=== PATIENT | female | born 1980 | race Hispanic/Latino ===

== ENCOUNTER 2018-01-19 15:42 | Emergency (ER) | payer OTHER, SELFPAY ==
[2018-01-19 15:44] VITALS: BP 126/83; PULSE 80; RESP 16; TEMP 36.4; O2SAT 100
--- NOTE | 2018-01-19 16:03 | DI.US.S_ITS ---
PROCEDURE: US PERIPH VENOUS LOW EXTREM RT INDICATIONS: pain, recent flight, hx dvt TECHNIQUE: Real-time imaging, as well as color and pulse Doppler interrogation, were performed of the lower extremity deep veins from the inguinal ligament to the popliteal fossa. COMPARISON: None. FINDINGS: The deep veins are normally compressible, and free of intraluminal thrombus. Color and pulse Doppler demonstrate normal phasic intraluminal flow. There is normal augmentation response to distal compression maneuver. IMPRESSION: No visualized deep venous thrombosis. Dictated by: Emilia Zaragoza M.D. on 01/19/2018 at 18:08 Approved by: Emilia Zaragoza M.D. on 01/19/2018 at 18:08
--- NOTE | 2018-01-19 17:21 | ED.EXTPRO ---
HPI - Extremity Problem <GUSTAVO Nino - Last Filed: 01/19/18 18:12> General Chief complaint: Extremity Problem,Nontraumatic Stated complaint: THINKS SHE HAS A BLOOD CLOT AFTER A PLANE FLIGHT Time Seen by Provider: 01/19/18 15:55 Source: patient and family Mode of arrival: ambulatory Limitations: no limitations History of Present Illness HPI Narrative: Patient presents with chief complaint of Right leg pain. She is concerned about a deep vein thrombosis. She has history of DVT that she suspects led to a CVA as she has a PFO. She has been flying across the country over the past 3 days and flew back from [place] today. She had sudden onset of right leg pain. she denies any weakness or numbness or tingling. She denies any confusion, CVA symptoms, chest pain shortness of breath or abdominal pain. She denies any nausea vomiting diarrhea. She denies any numbness or tingling in her right leg. She is not taking any blood thinners. She denies any tobacco use or smoking. She stopped taking control after her previous incident. She complains of bilateral lower leg swelling as well. Related Data Home Medications Medication Instructions Recorded Confirmed cetirizine 10 mg PO QDAY #0 06/12/16 multivitamin [Multiple Vitamins] 1 tab PO QDAY #0 06/12/16 ranitidine HCl 150 mg PO BID #0 06/12/16 bupropion HCl [Wellbutrin XL] 150 mg PO QDAY #0 01/29/17 ibuprofen 800 mg PO TID #0 01/29/17 Allergies Allergy/AdvReac Type Severity Reaction Status Date / Time aspirin [ASPIRIN] Allergy Unknown ANAPHYLAXIS Unverified 07/24/17 12:42 hydrocodone [HYDROCODONE] Allergy Unknown ANAPHYLAXIS Unverified 07/24/17 12:42 Review of Systems <GUSTAVO Nino - Last Filed: 01/19/18 18:12> Review of Systems GENERAL: Denies chills, fatigue, malaise, fever, sweats. HEENT: Denies sinus pain, ear pain, sore throat, difficulty swallowing, dizziness. RESPIRATORY: Denies dyspnea, cough, wheezing, hemoptysis, sputum. CARDIOVASCULAR: Denies chest pain, palpitations, orthopnea, edema, GASTROINTESTINAL: Denies nausea, vomiting, abdominal pain, diarrhea, constipation, melena. : Denies dysuria, frequency, incontinence, hematuria, urinary retention. MUSCULOSKELETAL: See HPI SKIN: Denies rash, skin lesions, or other NEUROLOGIC: Denies weakness, headache, numbness, change in speech, confusion, seizures, incoordination. PSYCHIATRIC: No concerning psychosocial issues. 12 point review of systems is negative except for those stated above Exam <JUAN Nino-BC - Last Filed: 01/19/18 18:12> Narrative Exam Narrative: GENERAL: This is a well-nourished, well-developed patient, in no acute distress lying on stretcher HEAD: Atraumatic. Normocephalic. No temporal or scalp tenderness. EYES: Pupils equal round and reactive. Extraocular motions intact. No scleral icterus. No injection or drainage. ENT: Nose without bleeding, purulent drainage or septal hematoma. Throat without erythema, tonsillar hypertrophy or exudate. Uvula midline. Airway patent. NECK: Trachea midline. No JVD or lymphadenopathy. Supple, nontender, no meningeal signs. CARDIOVASCULAR: Regular rate and rhythm without murmurs, gallops, or rubs. RESPIRATORY: Clear to auscultation. Breath sounds equal bilaterally. No wheezes, rales, or rhonchi. no increased respiratory effort. No cough on exam. GASTROINTESTINAL: Abdomen soft, non-tender, nondistended. No hepato-splenomegaly, or palpable masses. No guarding. EXTREMITIES: +1 pedal edema noted bilaterally. Positive pedal pulses bilaterally. Patient has slight pain to palpation right upper thigh medial aspect. Full range of motion noted. BACK: Nontender without deformity or crepitance. No flank tenderness. NEURO: AOx3. SKIN: No rash erythema or ecchymosis noted right leg. Initial Vital Signs Initial Vital Signs: Vital Signs Temperature 97.6 F 01/19/18 15:44 Pulse Rate 80 01/19/18 15:44 Respiratory Rate 16 01/19/18 15:44 Blood Pressure 126/83 01/19/18 15:44 Pulse Oximetry 100 01/19/18 15:44 <Ramya Juarez DO - Last Filed: 01/20/18 07:57> Initial Vital Signs Initial Vital Signs: Vital Signs Temperature 97.6 F 01/19/18 15:44 Pulse Rate 80 01/19/18 15:44 Respiratory Rate 16 01/19/18 15:44 Blood Pressure 126/83 01/19/18 15:44 Pulse Oximetry 100 01/19/18 15:44 Course <GUSTAVO Nino - Last Filed: 01/19/18 18:12> Orders Ordered: ED Orders 01/19/18 16:03 US periph venous low extrem rt Stat Vital Signs - 8 hr 01/19/18 15:44 01/19/18 17:39 Temperature 97.6 F Pulse Rate 80 83 Respiratory Rate 16 17 Blood Pressure 126/83 129/76 Pulse Oximetry 100 99 <Ramya Juarez DO - Last Filed: 01/20/18 07:57> Orders Ordered: ED Orders 01/19/18 16:03 US periph venous low extrem rt Stat Vital Signs - 8 hr 01/19/18 15:44 01/19/18 17:39 Temperature 97.6 F Pulse Rate 80 83 Respiratory Rate 16 17 Blood Pressure 126/83 129/76 Pulse Oximetry 100 99 MDM - Extremity (Nontraumatic) <GUSTAVO Nino - Last Filed: 01/19/18 18:12> Imaging Data Venous US: Radiologist's impression: [place] [address] Ultrasound Report Signed Patient: Ledy Goss LMR#: [id number] : 1980Acct:[id number] Age/Sex: 37 / FDate of Service: 01/19/18 Loc: ED Accession Number: [id number] Procedure: US periph venous low extrem rt Ordering Provider: Nisa Whitley PROCEDURE: US PERIPH VENOUS LOW EXTREM RT INDICATIONS: pain, recent flight, hx dvt TECHNIQUE: Real-time imaging, as well as color and pulse Doppler interrogation, were performed of the lower extremity deep veins from the inguinal ligament to the popliteal fossa. COMPARISON: None. FINDINGS: The deep veins are normally compressible, and free of intraluminal thrombus. Color and pulse Doppler demonstrate normal phasic intraluminal flow. There is normal augmentation response to distal compression maneuver. IMPRESSION: No visualized deep venous thrombosis. Dictated by: Emilia Zaragoza M.D. on 01/19/2018 at 18:08 Approved by: Emilia Zaragoza M.D. on 01/19/2018 at 18:08 [facility] Narrative Medical decision making narrative: Patient presents with concern for DVT of her right leg. Given her risk factors and recent flying as well as her history, ultrasound was obtained. This came back negative for DVT. I offered to do lab work to evaluate for other causes of edema and check electrolytes organ function etc and patient declined. Patient will follow up with primary care provider. She has no questions or concerns upon discharge I discussed return precautions to the emergency department including chest pain, shortness of breath, concern for another blood clot. Discharge Plan Departure Patient Disposition: Home Clinical Impression: Acute leg pain Discharge Date/Time: 01/19/18 17:40 Interventions: ED Discharge Assessment Last Done: 01/19/18 17:39 Instructions: DI for Leg Pain Activity Restrictions/Additional Instructions: Your ultrasound came back today with no blood clot. I am glad you came in to be checked given her risk factors and history. Please follow-up with your primary care provider or come back to the emergency department if needed. He can try [id number] pain medications as needed and able as well as rest and ice. Prescriptions: No Action ranitidine HCl 150 MG tablet 150 mg PO BID Qty: 0 RF: 0 multivitamin [Multiple Vitamins] 1 EACH tablet 1 tab PO QDAY Qty: 0 RF: 0 cetirizine 10 MG tablet 10 mg PO QDAY Qty: 0 RF: 0 ibuprofen 800 MG tablet 800 mg PO TID Qty: 0 RF: 0 bupropion HCl [Wellbutrin XL] 150 MG tablet extended release 24 hr 150 mg PO QDAY Qty: 0 RF: 0 Referrals: Jose Martinez PA-C [Primary Care Provider] - <Ramya Juarez DO - Last Filed: 01/20/18 07:57> Cosign ED Attending Kevin Attestation: I was immediately available in the department for consultation. Documentation has been reviewed. I agree with assessment and plan.
--- NOTE | 2018-01-19 17:24 | ED_ITS ---
HPI - Extremity Problem <GUSTAVO Nino - Last Filed: 01/19/18 18:12> General Chief complaint: Extremity Problem,Nontraumatic Stated complaint: THINKS SHE HAS A BLOOD CLOT AFTER A PLANE FLIGHT Time Seen by Provider: 01/19/18 15:55 Source: patient and family Mode of arrival: ambulatory Limitations: no limitations History of Present Illness HPI Narrative: Patient presents with chief complaint of Right leg pain. She is concerned about a deep vein thrombosis. She has history of DVT that she suspects led to a CVA as she has a PFO. She has been flying across the country over the past 3 days and flew back from [place] today. She had sudden onset of right leg pain. she denies any weakness or numbness or tingling. She denies any confusion, CVA symptoms, chest pain shortness of breath or abdominal pain. She denies any nausea vomiting diarrhea. She denies any numbness or tingling in her right leg. She is not taking any blood thinners. She denies any tobacco use or smoking. She stopped taking control after her previous incident. She complains of bilateral lower leg swelling as well. Related Data Home Medications Medication Instructions Recorded Confirmed cetirizine 10 mg PO QDAY #0 06/12/16 multivitamin [Multiple Vitamins] 1 tab PO QDAY #0 06/12/16 ranitidine HCl 150 mg PO BID #0 06/12/16 bupropion HCl [Wellbutrin XL] 150 mg PO QDAY #0 01/29/17 ibuprofen 800 mg PO TID #0 01/29/17 Allergies Allergy/AdvReac Type Severity Reaction Status Date / Time aspirin [ASPIRIN] Allergy Unknown ANAPHYLAXIS Unverified 07/24/17 12:42 hydrocodone [HYDROCODONE] Allergy Unknown ANAPHYLAXIS Unverified 07/24/17 12:42 Review of Systems <GUSTAVO Nino - Last Filed: 01/19/18 18:12> Review of Systems GENERAL: Denies chills, fatigue, malaise, fever, sweats. HEENT: Denies sinus pain, ear pain, sore throat, difficulty swallowing, dizziness. RESPIRATORY: Denies dyspnea, cough, wheezing, hemoptysis, sputum. CARDIOVASCULAR: Denies chest pain, palpitations, orthopnea, edema, GASTROINTESTINAL: Denies nausea, vomiting, abdominal pain, diarrhea, constipation, melena. : Denies dysuria, frequency, incontinence, hematuria, urinary retention. MUSCULOSKELETAL: See HPI SKIN: Denies rash, skin lesions, or other NEUROLOGIC: Denies weakness, headache, numbness, change in speech, confusion, seizures, incoordination. PSYCHIATRIC: No concerning psychosocial issues. 12 point review of systems is negative except for those stated above Exam <JUAN Nino-BC - Last Filed: 01/19/18 18:12> Narrative Exam Narrative: GENERAL: This is a well-nourished, well-developed patient, in no acute distress lying on stretcher HEAD: Atraumatic. Normocephalic. No temporal or scalp tenderness. EYES: Pupils equal round and reactive. Extraocular motions intact. No scleral icterus. No injection or drainage. ENT: Nose without bleeding, purulent drainage or septal hematoma. Throat without erythema, tonsillar hypertrophy or exudate. Uvula midline. Airway patent. NECK: Trachea midline. No JVD or lymphadenopathy. Supple, nontender, no meningeal signs. CARDIOVASCULAR: Regular rate and rhythm without murmurs, gallops, or rubs. RESPIRATORY: Clear to auscultation. Breath sounds equal bilaterally. No wheezes , rales, or rhonchi. no increased respiratory effort. No cough on exam. GASTROINTESTINAL: Abdomen soft, non-tender, nondistended. No hepato-splenomegaly , or palpable masses. No guarding. EXTREMITIES: +1 pedal edema noted bilaterally. Positive pedal pulses bilaterally. Patient has slight pain to palpation right upper thigh medial aspect. Full range of motion noted. BACK: Nontender without deformity or crepitance. No flank tenderness. NEURO: AOx3. SKIN: No rash erythema or ecchymosis noted right leg. Initial Vital Signs Initial Vital Signs: Vital Signs Temperature 97.6 F 01/19/18 15:44 Pulse Rate 80 01/19/18 15:44 Respiratory Rate 16 01/19/18 15:44 Blood Pressure 126/83 01/19/18 15:44 Pulse Oximetry 100 01/19/18 15:44 <Ramya Juarez DO - Last Filed: 01/20/18 07:57> Initial Vital Signs Initial Vital Signs: Vital Signs Temperature 97.6 F 01/19/18 15:44 Pulse Rate 80 01/19/18 15:44 Respiratory Rate 16 01/19/18 15:44 Blood Pressure 126/83 01/19/18 15:44 Pulse Oximetry 100 01/19/18 15:44 Course <GUSTAVO Nino - Last Filed: 01/19/18 18:12> Orders Ordered: ED Orders 01/19/18 16:03 US periph venous low extrem rt Stat Vital Signs - 8 hr 01/19/18 15:44 01/19/18 17:39 Temperature 97.6 F Pulse Rate 80 83 Respiratory Rate 16 17 Blood Pressure 126/83 129/76 Pulse Oximetry 100 99 <Ramya Juarez DO - Last Filed: 01/20/18 07:57> Orders Ordered: ED Orders 01/19/18 16:03 US periph venous low extrem rt Stat Vital Signs - 8 hr 01/19/18 15:44 01/19/18 17:39 Temperature 97.6 F Pulse Rate 80 83 Respiratory Rate 16 17 Blood Pressure 126/83 129/76 Pulse Oximetry 100 99 MDM - Extremity (Nontraumatic) <GUSTAVO Nino - Last Filed: 01/19/18 18:12> Imaging Data Venous US: Radiologist's impression: [place] [address] Ultrasound Report Signed Patient: Ledy Goss LMR#: [id number] : 1980Acct:[id number] Age/Sex: 37 / FDate of Service: 01/19/18 Loc: ED Accession Number: [id number] Procedure: US periph venous low extrem rt Ordering Provider: Nisa Whitley PROCEDURE: US PERIPH VENOUS LOW EXTREM RT INDICATIONS: pain, recent flight, hx dvt TECHNIQUE: Real-time imaging, as well as color and pulse Doppler interrogation, were performed of the lower extremity deep veins from the inguinal ligament to the popliteal fossa. COMPARISON: None. FINDINGS: The deep veins are normally compressible, and free of intraluminal thrombus. Color and pulse Doppler demonstrate normal phasic intraluminal flow. There is normal augmentation response to distal compression maneuver. IMPRESSION: No visualized deep venous thrombosis. Dictated by: Emilia Zaragoza M.D. on 01/19/2018 at 18:08 Approved by: Emilia Zaragoza M.D. on 01/19/2018 at 18:08 [facility] Narrative Medical decision making narrative: Patient presents with concern for DVT of her right leg. Given her risk factors and recent flying as well as her history , ultrasound was obtained. This came back negative for DVT. I offered to do lab work to evaluate for other causes of edema and check electrolytes organ function etc and patient declined. Patient will follow up with primary care provider. She has no questions or concerns upon discharge I discussed return precautions to the emergency department including chest pain, shortness of breath, concern for another blood clot. Discharge Plan Departure Patient Disposition: Home Clinical Impression: Acute leg pain Discharge Date/Time: 01/19/18 17:40 Interventions: ED Discharge Assessment Last Done: 01/19/18 17:39 Instructions: DI for Leg Pain Activity Restrictions/Additional Instructions: Your ultrasound came back today with no blood clot. I am glad you came in to be checked given her risk factors and history. Please follow-up with your primary care provider or come back to the emergency department if needed. He can try [id number] pain medications as needed and able as well as rest and ice. Prescriptions: No Action ranitidine HCl 150 MG tablet 150 mg PO BID Qty: 0 RF: 0 multivitamin [Multiple Vitamins] 1 EACH tablet 1 tab PO QDAY Qty: 0 RF: 0 cetirizine 10 MG tablet 10 mg PO QDAY Qty: 0 RF: 0 ibuprofen 800 MG tablet 800 mg PO TID Qty: 0 RF: 0 bupropion HCl [Wellbutrin XL] 150 MG tablet extended release 24 hr 150 mg PO QDAY Qty: 0 RF: 0 Referrals: Jose Martinez PA-C [Primary Care Provider] - <Ramya Juarez DO - Last Filed: 01/20/18 07:57> Cosign ED Attending Kevin Attestation: I was immediately available in the department for consultation. Documentation has been reviewed. I agree with assessment and plan.
[2018-01-19 17:39] VITALS: BP 129/76; PULSE 83; RESP 17; O2SAT 99
--- NOTE | 2018-01-23 17:45 | PC.NURSE ---
Pt feeling fine. Pt states I love coming to you guys if I have to come to the ER.
== END 2018-01-19 17:40 | disposition home or self-care (01) ==
PROVIDERS: Emergency Provider Nurse Practitioner Family; Family Provider Physician Assistant; PCP Physician Assistant
DX: M79.604 Pain in right leg (principal)
CPT/HCPCS: 93971; 99282; 99284

== ENCOUNTER 2018-04-19 03:15 | Emergency (ER) | payer OTHER, SELFPAY ==
[2018-04-19 03:26] VITALS: BP 138/95; PULSE 75; RESP 16; TEMP 36.8; O2SAT 100; BMI 28.3
--- NOTE | 2018-04-19 03:37 | ED.FEMALEGU ---
HPI - Female Genitourinary General Chief complaint: Urogenital-Female Stated complaint: thinks she may have kidney stone Time Seen by Provider: 04/19/18 03:25 Source: patient and family Mode of arrival: ambulatory Limitations: no limitations History of Present Illness HPI Narrative: 30-year-old female, nonsmoker presents with her significant other in the chief complaint of sudden onset left flank for the past few. She denies provocation, palliation or radiation. She states she has got a history of kidney stones and this feels quite similar. She's had no fever or chills. She denies dysuria, frequency or urgency. She's had no injury, rash Onset (ago): hour(s) Female Urogenital Radiation: L Flank Quality: Aching and Burning Duration: intermittent Relieving factors: none Exacerbating factors: none Urinary symptoms: Flank Pain Patient : No Related Data Home Medications Medication Instructions Recorded Confirmed cetirizine 10 mg PO QDAY #0 06/12/16 multivitamin [Multiple Vitamins] 1 tab PO QDAY #0 06/12/16 ranitidine HCl 150 mg PO BID #0 06/12/16 bupropion HCl [Wellbutrin XL] 150 mg PO QDAY #0 01/29/17 ibuprofen 800 mg PO TID #0 01/29/17 Previous Rx's Medication Instructions Recorded ketorolac 10 mg PO Q6H PRN #14 tab 04/19/18 ondansetron 4 mg PO TID-QID PRN #10 tab 04/19/18 tamsulosin [Flomax] 0.4 mg PO DAILY #10 cap 04/19/18 Allergies Allergy/AdvReac Type Severity Reaction Status Date / Time aspirin [ASPIRIN] Allergy Unknown ANAPHYLAXIS Verified 04/19/18 03:26 hydrocodone [HYDROCODONE] Allergy Unknown ANAPHYLAXIS Verified 04/19/18 03:26 Review of Systems Review of Systems All systems reviewed & are unremarkable except as noted in HPI and below Constitutional Denies chills, Denies fever(s), Denies lethargy and Denies weakness Eyes Denies change in vision, Denies eye discharge, Denies irritation and Denies loss of vision ENT Ears, Nose, Mouth, and Throat: Denies change in voice, Denies neck pain and Denies sore throat Cardiovascular Denies chest pain, Denies irregular heart rhythm, Denies lightheadedness, Denies palpitations, Denies dyspnea, Denies dyspnea on exertion and Denies orthopnea Respiratory Denies cough, Denies dyspnea, Denies dyspnea on exertion and Denies wheezing Gastrointestinal Gastrointestinal: Denies abdominal pain, Denies change in bowel habits, Denies diarrhea, Denies nausea and Denies vomiting Genitourinary Denies hematuria, Reports flank pain, Denies urinary incontinence and Denies urinary urgency Musculoskeletal Denies neck pain Integumentary/Breasts Denies pruritus, Denies erythema, Denies rash and Denies wounds Neurologic Denies confusion, Denies loss of vision and Denies weakness Psychiatric Denies anxiety, Denies confusion, Denies depression, Denies homicidal ideation and Denies suicidal ideation Endocrine Denies palpitations Hematologic/Lymphatic Denies easy bruising Allergic/Immunologic Denies wheezing [facility] Social History Smoking Status: Never smoker Exam Initial Vital Signs Initial Vital Signs: Vital Signs Temperature 98.3 F 04/19/18 03:26 Pulse Rate 75 04/19/18 03:26 Respiratory Rate 16 04/19/18 03:26 Blood Pressure 138/95 H 04/19/18 03:26 Pulse Oximetry 100 04/19/18 03:26 Const General: cooperative and well developed Nutritional Appearance: well nourished Orientation: alert, awake, oriented x3 and not confused HENME Head: normocephalic and atraumatic Ears: external ears normal Nose: external nose normal Face and sinus: face symmetric and no sinus tenderness Mouth: moist mucous membranes Teeth and gingiva: dentition normal Throat: tonsils normal and uvula midline Eyes General: appearance normal, both eyes and all related structures Eyelids: eyelids normal Conjunctivae: conjunctivae normal Sclera: sclerae normal Pupils: PERRL EOM: EOM intact bilaterally Neck Neck: normal visual inspection, trachea midline, No lymphadenopathy, No midline deformity and No JVD Lymphatic: No lymphedema Chest Chest: normal inspection of the chest Resp Effort & Inspection: normal respiratory effort, able to speak in complete sentences, no respiratory distress and no use of accessory muscles Auscultation: clear to auscultation bilaterally, no rales, no rhonchi and no wheezes Cardio Rate: regular rate Rhythm: regular rhythm Heart Sounds: no click, no gallops, no murmurs and no rubs Pulses: normal peripheral pulses GI Inspection: non-distended Palpation: soft, no hepatosplenomegaly, No guarding, No pulsatile mass and No tender Auscultation: normal bowel sounds Back/Spine/Pelvis Back: No CVA tenderness Cervical Spine: cervical ROM normal and No pain with cervical ROM Thoracic/Lumbar Spine: thoracic and lumbar spine normal to inspection Skin General: no rashes or lesions noted, No jaundice and No petechiae Neuro General: alert, oriented x3, gait normal and no focal motor deficits Speech: speech normal Extrem General: full ROM, no clubbing, cyanosis or edema, no pedal edema and no calf tenderness Psych Appearance: well kempt Mental Status: mental status grossly normal Attitude: cooperative Thought Content: normal and suicidality Judgment: judgment good Course Orders Ordered: ED Orders 04/19/18 03:40 Urine Microscopic Stat 04/19/18 04:00 Complete Blood Count AUTO DIFF Stat Comprehensive Metabolic Panel Stat Discontinued Medications Sodium Chloride (Normal Saline 0.9%) 1,000 mls @ 1,000 mls/hr IV BOLUS ONE Stop: 04/19/18 04:42 Last Admin: 04/19/18 04:08 Dose: 1,000 mls/hr Ketorolac Tromethamine (Toradol) 15 mg IV NOW ONE Stop: 04/19/18 03:44 Last Admin: 04/19/18 04:07 Dose: 15 mg Vital Signs - 8 hr 04/19/18 03:26 Temperature 98.3 F Pulse Rate 75 Respiratory Rate 16 Blood Pressure 138/95 H Pulse Oximetry 100 MDM - Female Genitourinary Differential Diagnosis Likely urinary tract infection, ruptured ovarian cyst and cystitis Medical Records Attestation: I reviewed the patient's medical records. Lab Data Attestation: I reviewed the patient's lab results. Result diagrams: 04/19/18 04:00 04/19/18 04:00 Lab Results 04/19/18 04/19/18 04/19/18 Range/Units 03:40 04:00 04:00 WBC 11.9 H (4.5-11.0) X10^3/uL RBC 4.51 (4.0-5.2) X10^6/uL Hgb 13.6 (12.0-16.0) g/dL Hct 40.5 (36-46) % MCV 89.8 (80-100) fL MCH 30.1 (26-34) PG MCHC 33.5 (30-36) % RDW 12.9 (11.6-14.8) % Plt Count 291 (150-400) X10^3/uL Neut % (Auto) 73.8 (50-75) % Lymph % (Auto) 16.9 L (25-40) % Knott % (Auto) 6.0 (3-14) % Eos % (Auto) 2.8 (2-4) % Baso % (Auto) 0.5 (0-2) % Neut # (Auto) 8800 H (0619-5781) /uL Sodium 137 (137-145) mmol/L Potassium 4.1 (3.4-5.1) mmol/L Chloride 103 (98-107) mmol/L Carbon Dioxide 20 L (22-32) mmol/L BUN 17 (7-17) mg/dL Creatinine 1.20 H (0.52-1.04) mg/dL Estimated GFR 50.3 L (>60) mL/min BUN/Creatinine Ratio 14.2 (6-22) Glucose 115 H (70-100) mg/dL Calcium 9.5 (8.4-10.2) mg/dL Total Bilirubin 0.4 (0.2-1.3) mg/dL AST 25 (14-36) IU/L ALT 10 (9-52) IU/L Alkaline Phosphatase 86 (38-126) U/L Total Protein 7.0 (6.3-8.2) g/dL Albumin 3.7 (3.5-5.0) g/dL Globulin 3.3 (1.7-4.1) g/dL Albumin/Globulin Ratio 1.1 (1.0-2.8) Urine RBC 30-100/hpf H (0-5/HPF) Urine WBC 0-1/hpf (0-5/HPF) Ur Squamous Epith Cells 5-10 /hpf H Urine Bacteria Moderate (10-30) H (None) Ur Culture Indicated? Cult not indicated Micro UA Comment Not Reportable Urine Dip Bedside Urine Glucose Negative Bedside Urine Bilirubin - Negative Bedside Urine Ketone - Negative Urine Specific Olivia 1.030 Bedside Urine Occult Blood +++ Bedside Urine pH 6.0 Bedside Urine Protein - Negative Bedside Urine Urobilinogen - Negative Bedside Urine Nitrite - Negative Bedside Urine Leukocytes - Negative Esterase MDM Narrative Medical decision making narrative: Pyelo considered but thought less likely given lack of infectious findings in urine Kidney stone thought likely given hematuria with L flank pain and near complete resolution with toradol. Considered CT, but with shared decision making we decided to hold off on it for now. Patient given return precautions and she has verbalized her understanding Discharge Plan Departure Patient Disposition: Home Clinical Impression: Kidney stone on left side Instructions: DI for Kidney Stones Activity Restrictions/Additional Instructions: *You have been diagnosed with [ left flank pain, likely kidney stone ] *What to do: *Take medications as directed *Follow up with your primary care provider in 2-3 days, call for an appointment. Let them know you were seen in the Emergency Department and that we ask that you be seen in follow up *Return to ER if you should have any new, worsening or concerning symptoms, such as [worsening pain, fever, chills, nausea, vomiting or other bothersome symptoms ] Prescriptions: New ketorolac 10 mg tablet 10 mg PO Q6H PRN (Reason: pain) Qty: 14 RF: 0 tamsulosin [Flomax] 0.4 mg capsule 0.4 mg PO DAILY Qty: 10 RF: 0 ondansetron 4 mg tablet,disintegrating 4 mg PO TID-QID PRN (Reason: nausea and vomiting) Qty: 10 RF: 0 No Action ranitidine HCl 150 MG tablet 150 mg PO BID Qty: 0 RF: 0 multivitamin [Multiple Vitamins] 1 EACH tablet 1 tab PO QDAY Qty: 0 RF: 0 cetirizine 10 MG tablet 10 mg PO QDAY Qty: 0 RF: 0 ibuprofen 800 MG tablet 800 mg PO TID Qty: 0 RF: 0 bupropion HCl [Wellbutrin XL] 150 MG tablet extended release 24 hr 150 mg PO QDAY Qty: 0 RF: 0 Referrals: Kirstin Luna MD [Physician] - Jose Martinez PA-C [Primary Care Provider] -
[2018-04-19 04:05] LABS: RBC Urine 30-100/HPF (0-5/HPF)
[2018-04-19 04:06] LABS: Bacteria Urine Moderate (10-30); Culture Indicated Urine Cult Not Indicated; Squamous Epithelial Cell Urine 5-10 /HPF; WBC Urine 0-1/HPF (0-5/HPF)
[2018-04-19] MEDS: KETOROLAC 30 MG/ML VIAL 15 MG IV (04:07)
[2018-04-19] MEDS: SODIUM CHLORIDE 0.9% 1,000 ML 1000 ML IV (04:08)
[2018-04-19 04:14] LABS: Add Manual Diff / Slide Review NO; Basophils Percent Auto 0.5 % (0-2); Eosinophils Percent Auto 2.8 % (2-4); Hematocrit 40.5 % (36-46); Hemoglobin 13.6 g/dL (12.0-16.0); Lymphocytes Percent Auto 16.9 % (25-40); Mean Corpuscular HGB Conc 33.5 % (30-36); Mean Corpuscular Hemoglobin 30.1 PG (26-34); Mean Corpuscular Volume 89.8 fL (80-100); Neutrophils Absolute Auto 8800 /uL (1500-7000); Neutrophils Percent Auto 73.8 % (50-75); Platelet Count 291 X10^3/uL (150-400); Red Blood Cell Count 4.51 X10^6/uL (4.0-5.2); Red Cell Distribution Width 12.9 % (11.6-14.8); White Blood Cell Count 11.9 X10^3/uL (4.5-11.0)
[2018-04-19 04:18] LABS: Alanine Aminotransferase 10 IU/L (9-52); Albumin 3.7 g/dL (3.5-5.0); Albumin Globulin Ratio 1.1 (1.0-2.8); Alkaline Phosphatase 86 U/L (38-126); Aspartate Aminotransferase 25 IU/L (14-36); BUN Creatinine Ratio 14.2 (6-22); Bilirubin Total 0.4 mg/dL (0.2-1.3); Blood Urea Nitrogen 17 mg/dL (7-17); Calcium 9.5 mg/dL (8.4-10.2); Carbon Dioxide 20 mmol/L (22-32); Chloride 103 mmol/L (98-107); Estimated Glomerular Filt Rate 50.3 mL/min (>60); Globulin 3.3 g/dL (1.7-4.1); Glucose 115 mg/dL (70-100); HEMOLYSIS < 15 (0-50); Potassium 4.1 mmol/L (3.4-5.1); Sodium 137 mmol/L (137-145)
[2018-04-19 05:06] VITALS: BP 126/81; PULSE 72; RESP 15; O2SAT 99
== END 2018-04-19 05:06 | disposition home or self-care (01) ==
PROVIDERS: Emergency Provider Emergency Medicine; Family Provider Physician Assistant; PCP Physician Assistant
DX: N20.0 Calculus of kidney (principal)
CPT/HCPCS: 36591; 80053; 81003; 81015; 85025; 96361; 96374; 99283; 99284; J1885

== ENCOUNTER 2019-03-08 09:37 | Emergency (ER) | payer OTHER, SELFPAY ==
[2019-03-08 09:57] VITALS: BP 154/72; PULSE 70; RESP 16; TEMP 36.8; O2SAT 98; BMI 36.6
[2019-03-08 10:04] LABS: Appearance Urine UA SL CLOUDY; Bilirubin Urine UA NEGATIVE (NEGATIVE); Color Urine UA YELLOW; Glucose Urine UA NEGATIVE (Negative); Ketones Urine UA NEGATIVE (NEGATIVE); Leukocyte Esterase Urine UA NEGATIVE (NEGATIVE); Nitrite Urine UA NEGATIVE (Negative); Occult Blood Urine UA 3+ (Negative); Protein Urine UA NEGATIVE (Negative); Urobilinogen Urine UA 0.2 E.U./dL (0.2)
[2019-03-08 10:05] LABS: pH Urine UA 5.5 (4.5-8.0)
--- NOTE | 2019-03-08 10:15 | DI.CT.S_ITS ---
PROCEDURE: CT KIDNEY URETER BLADDER (KUB) INDICATIONS: R flank pain TECHNIQUE: Noncontrast 5 mm thick sections acquired from the diaphragms to the symphysis. 5 mm thick coronal and sagittal reformats were then performed. For radiation dose reduction, the following was used: automated exposure control, adjustment of mA and/or kV according to patient size. COMPARISON: None. FINDINGS: Image quality: Excellent. Lung bases: Lung bases are clear. Heart size is normal. Urinary system: Both kidneys are normal in size. No kidney stones. No hydronephrosis or perinephric fat stranding. Both ureters appear non-dilated throughout their expected courses. Bladder wall thickness is normal; punctate calcification is noted immediately distal to the right ureteral calculus. Other solid organs: Liver is enlarged with steatosis. Gallbladder is unremarkable. Pancreas is normal in contours. Spleen is normal in size. No adrenal nodules. Peritoneum and bowel: Unenhanced bowel loops demonstrate normal wall thickness and caliber. No free fluid or air. Nodes and vessels: No retroperitoneal or mesenteric adenopathy by size criteria. Aorta and inferior vena cava are normal in caliber. Abdominal wall: No ventral hernias. Pelvis: No free pelvic fluid. No inguinal hernias or adenopathy. Bones: No suspicious bony lesions. No vertebral body compression fractures. IMPRESSION: 1. Punctate calculus immediately distal to the ureterovesicular junction as above. Dictated by: Emilia Zaragoza M.D. on 03/08/2019 at 11:28 Approved by: Emilia Zaragoza M.D. on 03/08/2019 at 11:31
[2019-03-08 10:17] LABS: RBC Urine 30-100/HPF (0-5/HPF); WBC Urine 0-1/HPF (0-5/HPF)
[2019-03-08 10:18] LABS: Amorphous Sediment Urine 1+; Bacteria Urine Many (>30); Squamous Epithelial Cell Urine >30 /HPF (0-5/HPF)
--- NOTE | 2019-03-08 10:19 | ED_ITS ---
HPI - Female Genitourinary General Chief complaint: Urogenital-Female Stated complaint: kidney stone Time Seen by Provider: 03/08/19 09:44 Source: patient Mode of arrival: Ambulatory History of Present Illness HPI Narrative: Patient comes emergency department complaining of urinary frequency for the last week and right flank pain for last couple of days. She states she has not had any fevers or dysuria. No gross blood in her urine. Iggy estrada states the symptoms feel similar to when she has had a kidney stone the past. Patient denies any anterior abdominal pain. No bowel changes. Patient has been nauseated and vomiting. No other complaints at this time period Related Data Home Medications Medication Instructions Recorded Confirmed cetirizine 10 mg PO QDAY #0 06/12/16 multivitamin [Multiple Vitamins] 1 tab PO QDAY #0 06/12/16 ranitidine HCl 150 mg PO BID #0 06/12/16 bupropion HCl [Wellbutrin XL] 150 mg PO QDAY #0 01/29/17 ibuprofen 800 mg PO TID #0 01/29/17 Previous Rx's Medication Instructions Recorded ketorolac 10 mg PO Q6H PRN #14 tab 04/19/18 ondansetron 4 mg PO TID-QID PRN #10 tab 04/19/18 tamsulosin [Flomax] 0.4 mg PO DAILY #10 cap 04/19/18 ondansetron 4 mg PO Q6H PRN #7 tab 03/08/19 tramadol [Ultram] 50 mg PO Q4H PRN #7 tab 03/08/19 Allergies Allergy/AdvReac Type Severity Reaction Status Date / Time aspirin [ASPIRIN] Allergy Unknown ANAPHYLAXIS Verified 03/08/19 09:57 hydrocodone [HYDROCODONE] Allergy Unknown ANAPHYLAXIS Verified 03/08/19 09:57 Review of Systems Constitutional Constitutional: Denies chills, Denies fatigue, Denies fever(s), Denies frequent falls, Denies lethargy and Denies weakness Eyes Eyes: Denies change in vision, Denies eye discharge, Denies irritation and Denies loss of vision ENT Ears, Nose, Mouth, and Throat: Denies change in voice, Denies dizziness, Denies neck pain, Denies sore throat and Denies throat swelling Cardiovascular Cardiovascular: Denies chest pain, Denies irregular heart rhythm, Denies lightheadedness, Denies palpitations, Denies dyspnea, Denies dyspnea on exertion and Denies orthopnea Respiratory Respiratory: Denies cough, Denies dyspnea, Denies dyspnea on exertion and Denies wheezing Gastrointestinal Gastrointestinal: Denies abdominal pain, Denies change in bowel habits, Denies diarrhea, Reports nausea and Reports vomiting Genitourinary Genitourinary: Denies hematuria, Reports flank pain, Denies urinary incontinence and Denies urinary urgency Comments: Urinary frequency Musculoskeletal Musculoskeletal: Denies back pain, Denies muscle weakness, Denies neck pain, Denies numbness and Denies tingling Integumentary/Breasts Skin/Breast: Denies pruritus, Denies erythema, Denies rash and Denies wounds Neurologic Neurologic: Denies behavioral changes, Denies confusion, Denies dizziness, Denies frequent falls, Denies loss of vision, Denies numbness, Denies tingling and Denies weakness Psychiatric Psychiatric: Denies anxiety, Denies behavioral changes, Denies confusion, Denies depression, Denies homicidal ideation and Denies suicidal ideation Endocrine Endocrine: Denies fatigue, Denies flushing and Denies palpitations Hematologic/Lymphatic Hematologic/Lymphatic: Denies easy bruising Allergic/Immunologic Allergic/Immunologic: Denies urticaria, Denies throat swelling and Denies wheezing Patient History marital status: Smoking Status: Never smoker Exam Initial Vital Signs Initial Vital Signs: Vital Signs Temperature 98.3 F 03/08/19 09:57 Pulse Rate 70 03/08/19 09:57 Respiratory Rate 16 03/08/19 09:57 Blood Pressure 154/72 H 03/08/19 09:57 Pulse Oximetry 98 03/08/19 09:57 Const General: cooperative and well developed Nutritional Appearance: well nourished Orientation: alert, awake, oriented x3 and not confused [facility] Head: normocephalic and atraumatic Ears: external ears normal Nose: external nose normal and No nasal discharge Face and sinus: face symmetric and No dry mucous membranes Mouth: oral mucosae normal and moist mucous membranes Teeth and gingiva: dentition normal Throat: tonsils normal and uvula midline Eyes General: appearance normal, both eyes and all related structures Eyelids: eyelids normal Conjunctivae: conjunctivae normal Sclera: sclerae normal Pupils: PERRL EOM: EOM intact bilaterally Neck Neck: normal visual inspection, trachea midline, No lymphadenopathy, No midline deformity and No JVD Lymphatic: No lymphedema Chest Chest: normal inspection of the chest Resp Effort & Inspection: normal respiratory effort, able to speak in complete sentences, no respiratory distress and no use of accessory muscles Auscultation: clear to auscultation bilaterally, no rales, no rhonchi and no wheezes Cardio Rate: regular rate Rhythm: regular rhythm Heart Sounds: no click, no gallops, no murmurs and no rubs Pulses: normal peripheral pulses GI Inspection: non-distended Palpation: soft, no hepatosplenomegaly, No guarding, No pulsatile mass and tender (Mild, right flank) Auscultation: normal bowel sounds General: CVA tenderness (Right) Back/Spine/Pelvis Back: No CVA tenderness Cervical Spine: cervical ROM normal and No pain with cervical ROM Thoracic/Lumbar Spine: thoracic and lumbar spine normal to inspection Skin General: no rashes or lesions noted, No jaundice and No petechiae Neuro General: alert, oriented x3, gait normal and no focal motor deficits Speech: speech normal Extrem General: full ROM, no clubbing, cyanosis or edema, no pedal edema and no calf tenderness Psych Appearance: well kempt Mental Status: mental status grossly normal Attitude: cooperative Thought Content: normal and suicidality Judgment: judgment good Course Course Course Narrative: Patient was worked up for urinalysis and ultimately, CT KUB. She was treated symptomatically with IV fluids, Zofran, Toradol, and Dilaudid. She was found to have a small stone at the UVJ on the right. I re-evaluated the patient was feeling much better, and I discussed with her and her the findings CT. We have discussed home management of symptoms, as well as the usual indications for return. I have given her prescriptions for Vicodin and Zofran, though I do believe the stone will pass quite soon, based on the CT findings. Orders Ordered: Discontinued Medications Hydromorphone HCl (Dilaudid) 0.5 mg IV NOW ONE Stop: 03/08/19 10:18 Last Admin: 03/08/19 10:38 Dose: 0.5 mg Documented by: GREGG Sodium Chloride (Normal Saline 0.9%) 1,000 mls @ 1,000 mls/hr IV BOLUS ONE Stop: 03/08/19 11:12 Last Infusion: 03/08/19 12:43 Dose: 0 mls/hr Documented by: Admin: 03/08/19 10:39 Dose: 1,000 mls/hr Documented by: GREGG Ketorolac Tromethamine (Toradol) 30 mg IV NOW ONE Stop: 03/08/19 10:14 Last Admin: 03/08/19 10:37 Dose: 30 mg Documented by: GREGG Ondansetron HCl (Zofran) 4 mg IV NOW ONE Stop: 03/08/19 10:14 Last Admin: 03/08/19 10:35 Dose: 4 mg Documented by: GREGG Vital Signs Vital signs: Vital Signs - 8 hr 03/08/19 09:57 Temperature 98.3 F Pulse Rate 70 Respiratory Rate 16 Blood Pressure 154/72 H Pulse Oximetry 98 MDM - Female Genitourinary Medical Records Attestation: I reviewed the patient's medical records. Lab Data Attestation: I reviewed the patient's lab results. Labs: Lab Results 03/08/19 Range/Units 10:01 Urine Color Yellow Urine Appearance Sl cloudy Urine pH 5.5 (4.5-8.0) Ur Specific [place] 1.020 (1.000-1.035) Urine Protein Negative (Negative) Urine Glucose (UA) Negative (Negative) g/dL Urine Ketones Negative (NEGATIVE) Urine Occult Blood 3+ H (Negative) Urine Nitrate Negative (Negative) Urine Bilirubin Negative (NEGATIVE) Urine Urobilinogen 0.2 (0.2) E.U./dL Ur Leukocyte Esterase Negative (NEGATIVE) Urine RBC 30-100/hpf H (0-5/HPF) Urine WBC 0-1/hpf (0-5/HPF) Ur Squamous Epith Cells >30 /hpf H (0-5/HPF) Other Crystals Ammonium biurate Amorphous Sediment 1+ Urine Bacteria Many (>30) H (None) Ur Culture Indicated? Culture not indicate Micro UA Comment Imaging Data CT scan - abdomen: Radiologist's impression: PROCEDURE: CT KIDNEY URETER BLADDER (KUB) INDICATIONS: R flank pain TECHNIQUE: Noncontrast 5 mm thick sections acquired from the diaphragms to the symphysis. 5 mm thick coronal and sagittal reformats were then performed. For radiation dose reduction, the following was used: automated exposure control, adjustment of mA and/or kV according to patient size. COMPARISON: None. FINDINGS: Image quality: Excellent. Lung bases: Lung bases are clear. Heart size is normal. Urinary system: Both kidneys are normal in size. No kidney stones. No hydronephrosis or perinephric fat stranding. Both ureters appear non-dilated throughout their expected courses. Bladder wall thickness is normal; punctate calcification is noted immediately distal to the right ureteral calculus. Other solid organs: Liver is enlarged with steatosis. Gallbladder is unremarkab le. Pancreas is normal in contours. Spleen is normal in size. No adrenal nodules. Peritoneum and bowel: Unenhanced bowel loops demonstrate normal wall thickness and caliber. No free fluid or air. Nodes and vessels: No retroperitoneal or mesenteric adenopathy by size criteria. Aorta and inferior vena cava are normal in caliber. Abdominal wall: No ventral hernias. Pelvis: No free pelvic fluid. No inguinal hernias or adenopathy. Bones: No suspicious bony lesions. No vertebral body compression fractures. IMPRESSION: 1. Punctate calculus immediately distal to the ureterovesicular junction as above. Dictated by: Emilia Zaragoza M.D. on 03/08/2019 at 11:28 Approved by: Emilia Zaragoza M.D. on 03/08/2019 at 11:31 Discharge Plan Departure Patient Disposition: Home Clinical Impression: Kidney stone Discharge Date/Time: 03/08/19 12:46 Instructions: DI for Kidney Stones Activity Restrictions/Additional Instructions: Your urinalysis showed blood, but no infection. Your CT scan showed a small kidney stone that is about to pop out of your ureter into your bladder. This is most likely why you have the recent escalation in pain, as this is the most difficult place for a stone to pass. Once stone passes past the wall of the bladder, it will be easily passed through. Prescriptions: New ondansetron 4 mg tablet,disintegrating 4 mg PO Q6H PRN (Reason: nausea and vomiting) Qty: 7 RF: 0 tramadol [Ultram] 50 mg tablet 50 mg PO Q4H PRN (Reason: pain) Qty: 7 RF: 0 No Action ranitidine HCl 150 MG tablet 150 mg PO BID Qty: 0 RF: 0 multivitamin [Multiple Vitamins] 1 EACH tablet 1 tab PO QDAY Qty: 0 RF: 0 cetirizine 10 MG tablet 10 mg PO QDAY Qty: 0 RF: 0 ibuprofen 800 MG tablet 800 mg PO TID Qty: 0 RF: 0 bupropion HCl [Wellbutrin XL] 150 MG tablet extended release 24 hr 150 mg PO QDAY Qty: 0 RF: 0 ketorolac 10 mg tablet 10 mg PO Q6H PRN (Reason: pain) Qty: 14 RF: 0 tamsulosin [Flomax] 0.4 mg capsule 0.4 mg PO DAILY Qty: 10 RF: 0 ondansetron 4 mg tablet,disintegrating 4 mg PO TID-QID PRN (Reason: nausea and vomiting) Qty: 10 RF: 0 Referrals: Jose Martinez PA-C [Primary Care Provider] -
[2019-03-08] MEDS: ONDANSETRON 4 MG/2 ML INJ IV (10:35)
[2019-03-08] MEDS: KETOROLAC 60 MG/2 ML VIAL 30 MG IV (10:37)
[2019-03-08] MEDS: HYDROMORPHONE 0.5 MG INJ IV (10:38)
[2019-03-08] MEDS: SODIUM CHLORIDE 0.9% 1,000 ML 1000 ML IV (10:39)
[2019-03-08 11:00] VITALS: BP 119/65; PULSE 81; RESP 18; O2SAT 97
[2019-03-08 12:00] VITALS: BP 112/64; PULSE 77; O2SAT 97
[2019-03-08 12:30] VITALS: BP 115/63; PULSE 75; O2SAT 98
== END 2019-03-08 12:46 | disposition home or self-care (01) ==
PROVIDERS: Emergency Provider Emergency Medicine; PCP Physician Assistant
DX: N20.0 Calculus of kidney (principal); Z87.442 Personal history of urinary calculi; R11.2 Nausea with vomiting, unspecified
CPT/HCPCS: 36415; 74176; 81001; 96361; 96374; 96375; 99283; 99284; J1170; J1885; J2405

== ENCOUNTER 2020-11-16 23:13 | Emergency (ER) | payer OTHER, SELFPAY ==
[2020-11-16 23:21] VITALS: BP 122/76; PULSE 85; RESP 18; TEMP 36.6; O2SAT 98
--- NOTE | 2020-11-16 23:24 | DI.RAD.S_ITS ---
PROCEDURE: XR HIP W PEL IF DONE LT 2V INDICATIONS: no injury,pain TECHNIQUE: AP pelvis with lateral view(s) of the left hip(s). COMPARISON: None. FINDINGS: Bones: No fractures or dislocations. Pelvic ring appears intact. No suspicious bony lesions. Soft tissues: The visualized bowel gas pattern is normal. Small calcification noted in the medial soft tissues adjacent to the superior margin of the left lesser trochanter. IMPRESSION: No osseous lesion. If symptoms and/or clinical suspicion for pathology persists, further assessment with repeat radiographs (7-10 days) or advanced imaging (e.g. CT, MRI or bone scan) should be considered. Dictated by: Deana Dickinson MD, PhD on 11/17/2020 at 8:58 Approved by: Deana Dickinson MD, PhD on 11/17/2020 at 8:59
--- NOTE | 2020-11-17 00:03 | ED.EXTPRO ---
HPI - Extremity Problem General Chief complaint: Extremity Problem,Nontraumatic Stated complaint: left hip pain Time Seen by Provider: 11/16/20 23:56 Source: patient Mode of arrival: Wheelchair Limitations: no limitations History of Present Illness HPI Narrative: Patient is a 40-year-old female here for evaluation of left hip discomfort. She states that earlier this evening she was riding in a car. She started having discomfort in the hip and by the time that they stopped and when she tried to get out she had such excruciating pain that she could not stand. Has tried some heat and ice and also anti-inflammatories without any improvement. She did not fall. She has no back pain. No tingling down into her leg. Describes the discomfort as the front of her leg. Related Data Home Medications Medication Instructions Recorded Confirmed cetirizine 10 mg tablet 10 mg PO QDAY #0 06/12/16 multivitamin (Multiple Vitamins) 1 tab PO QDAY #0 06/12/16 ranitidine HCl 150 mg tablet 150 mg PO BID #0 06/12/16 bupropion HCl 150 mg 24 hr tablet, 150 mg PO QDAY #0 01/29/17 extended release (Wellbutrin XL) ibuprofen 800 mg tablet 800 mg PO TID #0 01/29/17 Previous Rx's Medication Instructions Recorded ketorolac 10 mg tablet 10 mg PO Q6H PRN #14 tab 04/19/18 ondansetron 4 mg disintegrating 4 mg PO TID-QID PRN #10 tab 04/19/18 tablet tamsulosin 0.4 mg capsule (Flomax) 0.4 mg PO DAILY #10 cap 04/19/18 ondansetron 4 mg disintegrating 4 mg PO Q6H PRN #7 tab 03/08/19 tablet tramadol 50 mg tablet (Ultram) 50 mg PO Q4H PRN #7 tab 03/08/19 Allergies Allergy/AdvReac Type Severity Reaction Status Date / Time aspirin [ASPIRIN] Allergy Unknown ANAPHYLAXIS Verified 03/08/19 09:57 hydrocodone [HYDROCODONE] Allergy Unknown ANAPHYLAXIS Verified 03/08/19 09:57 Review of Systems Constitutional Constitutional: Reports system reviewed and no additional complaints, except as documented Gastrointestinal Gastrointestinal: Reports system reviewed and no additional complaints, except as documented Genitourinary Genitourinary: Reports system reviewed and no additional complaints, except as documented Musculoskeletal Musculoskeletal: Reports as per HPI Integumentary/Breasts Skin/Breast: Reports system reviewed and no additional complaints, except as documented Hematologic/Lymphatic On Anticoagulants: No Patient History Medical History Atypical chest pain Social History marital status: Smoking Status: Never smoker Smoking Status: Never smoker Substance Use Type: does not use Exam Initial Vital Signs Initial Vital Signs: Vital Signs Temperature 98 F 11/16/20 23:21 Pulse Rate 85 11/16/20 23:21 Respiratory Rate 18 11/16/20 23:21 Blood Pressure 122/76 11/16/20 23:21 Pulse Oximetry 98 11/16/20 23:21 Const General: cooperative, healthy appearing and comfortable HENMT Head: normal to inspection and normocephalic Resp Effort & Inspection: normal respiratory effort Cardio Rate: regular rate GI Inspection: normal to inspection Palpation: soft Back/Spine/Pelvis Thoracic/Lumbar Spine: No paraspinal tenderness and No lumbar spinal tenderness Skin General: no rashes or lesions noted Neuro General: patient alert, patient awake, patient oriented x3 and moves all extremities Extrem General: normal to inspection and capillary refill normal Other: Her left knee and left ankle are unremarkable. Has tenderness to palpation over the anterior portion of the left hip. I can reproduce the tenderness by flexion of the hip. Has no tenderness over the greater trochanter the lateral aspect of the hip. Psych Appearance: grossly normal and well kempt Course Orders Ordered: ED Orders 11/16/20 23:24 XR hip w pel if done LT 2V Stat Discontinued Medications Cyclobenzaprine HCl (Cyclobenzaprine 10 Mg Tablet) 10 mg PO NOW ONE Stop: 11/17/20 00:04 Last Admin: 11/17/20 00:19 Dose: 10 mg Documented by: Cyclobenzaprine HCl (Cyclobenzaprine 10 Mg Prepack) 1 bottle MISC SEEINSTR ONE Stop: 11/17/20 00:04 Last Admin: 11/17/20 00:19 Dose: 1 bottle Documented by: Vital Signs Vital signs: Vital Signs - 8 hr 11/16/20 23:21 Temperature 98 F Pulse Rate 85 Respiratory Rate 18 Blood Pressure 122/76 Pulse Oximetry 98 MDM - Extremity (Nontraumatic) Imaging Data Extremity x-ray #1: Attestation: I personally reviewed and interpreted this imaging study as follows: My Impression: No fractures, no dislocations MDM Narrative Medical decision making narrative: Patient is symptoms are consistent with a strain of her hip flexors on the left. There were no fractures dislocations noted on the x-ray. She is otherwise neurovascularly intact. We did discuss conservative measures that she can do at home to include he denies and also stretching. Will send her home with muscle relaxers. She was given return precautions and follow-up instructions. She expressed understanding and agreement. Discharge Plan Departure Patient Disposition: Home Clinical Impression: Muscle strain of left hip Instructions: DI for Muscle Strain Activity Restrictions/Additional Instructions: Your physical exam today is consistent with hip flexor strain of your left hip. The muscle relaxers that you were given this evening should help with the symptoms. I also recommend that you do some stretching like we discussed. Return to the emergency department for any new or worsening symptoms Prescriptions: No Action ranitidine HCl 150 MG tablet 150 mg PO BID Qty: 0 RF: 0 multivitamin [Multiple Vitamins] 1 EACH tablet 1 tab PO QDAY Qty: 0 RF: 0 cetirizine 10 MG tablet 10 mg PO QDAY Qty: 0 RF: 0 ibuprofen 800 MG tablet 800 mg PO TID Qty: 0 RF: 0 bupropion HCl [Wellbutrin XL] 150 MG tablet extended release 24 hr 150 mg PO QDAY Qty: 0 RF: 0 ketorolac 10 mg tablet 10 mg PO Q6H PRN (Reason: pain) Qty: 14 RF: 0 tamsulosin [Flomax] 0.4 mg capsule 0.4 mg PO DAILY Qty: 10 RF: 0 ondansetron 4 mg tablet,disintegrating 4 mg PO TID-QID PRN (Reason: nausea and vomiting) Qty: 10 RF: 0 ondansetron 4 mg tablet,disintegrating 4 mg PO Q6H PRN (Reason: nausea and vomiting) Qty: 7 RF: 0 tramadol [Ultram] 50 mg tablet 50 mg PO Q4H PRN (Reason: pain) Qty: 7 RF: 0
[2020-11-17] MEDS: CYCLOBENZAPRINE 10 MG PREPACK 1 BOTTLE MISC (00:19)
[2020-11-17] MEDS: CYCLOBENZAPRINE 10 MG TABLET PO (00:19)
== END 2020-11-17 | disposition home or self-care (01) ==
PROVIDERS: Emergency Provider Emergency Medicine
DX: S76.012A Strain of muscle, fascia and tendon of left hip, initial encounter (principal)
CPT/HCPCS: 73502; 99283

== ENCOUNTER → 2021-11-15 12:31 | Outpatient (CLI) | payer OTHER, SELFPAY ==
--- NOTE | 2021-11-15 12:33 | DI.ECHO.S_ITS ---
[facility]---------+ [facility] +---------+ : : [address] : : : : [id number] : : : : Phone: [phone] Echocardiogram Report + + :Name: EDUIN CASILLAS Study Date: 11/15/2021 Height: 62 in : :[facility] ReadingLocation: Weight: 208 lb : : Gender: Female BSA: 1.9 m2 : :: 1980 Age: 41 yrs BP: 121/81 mmHg: :Reason For Study: DYSPNEA, ATRIAL SEPTAL DEFECT, CHEST PAIN : :Ordering Physician: BEATRICE, : :DEO Performed By: Tiffanie Fall : :Referring: DEO HELMS : + + Interpretation Summary 1) Normal left ventricular thickness, size, wall motion, and systolic function (EF 60-65%). 2) Normal right ventricular size and function. 3) No significant valvular abnormalities. 4) Bubble study showed bubbles in the left ventricle, suggesting intracardiac shunt but source of shunt couldn't be identified on this study. 5) No prior Echo available for comparison. Procedure: A two-dimensional transthoracic echocardiogram with color flow and Doppler was performed. The study quality was technically difficult. There is no prior echocardiogram noted for this patient. The patient was in sinus rhythm with heart rates between 70-90 bpm during the exam. Left Ventricle: The left ventricle is normal in size and wall thickness. The ejection fraction is estimated to be 60-65%. Left ventricular systolic function appears normal without focal wall motion abnormalities. Right Ventricle: The right ventricle is normal in size and function. Atria: The left atrial size is normal. Right atrial size is normal. Bubble study showed bubbles in the left ventricle, suggesting intracardiac shunt but source of shunt couldn't be identified on this study. Mitral Valve: The mitral valve is normal in structure and function. There is trace mitral regurgitation. Aortic Valve: The aortic valve is trileaflet. The aortic valve opens well. There is no aortic valve stenosis. No aortic regurgitation is present. Tricuspid Valve: The tricuspid valve is normal in structure and function. There is mild tricuspid regurgitation. Pulmonic Valve: The pulmonic valve leaflets are thin and pliable; valve motion is normal. There is no pulmonic valvular regurgitation. Great Vessels: The aortic root is normal size. The dimensions of the ascending aorta are normal. The inferior vena cava was not well visualized. Pericardium/ Pleura There is no pericardial effusion. There is no pleural effusion. MMode/2D Measurements & Calculations LVIDd: 4.3 cm LVOT diam: 2.2 cm LVIDs: 2.8 cm Ao root diam: 2.9 cm FS: 35.6 % asc Aorta Diam: 2.7 cm EPSS: 0.51 cm Ao Arch Diam (Prox Trans): 2.5 cm IVSd: 0.69 cm LVPWd: 0.65 cm LV elise. diameter/BSA (cm/m^2): 2.2 LV sys. diameter/BSA (cm/m^2): 1.4 LA A2 area: 15.1 cm2 RA long axis: 5.0 cm LA A4 area: 14.3 cm2 RA area: 13.9 cm2 LA length (vol): 5.1 cm RA vol: 33.0 ml LA vol: 36.1 ml RA : 17.0 ml/m2 LA vol index: 18.6 ml/m2 RVD1 (basal): 3.6 cm RVD2 (mid): 2.8 cm TAPSE: 1.6 cm Doppler Measurements & Calculations Ao V2 max: 106.9 cm/sec LVOT Max Javde: 75.8 cm/sec Ao V2 mean: 65.5 cm/sec LV V1 max P.3 mmHg Ao max P.6 mmHg LV V1 VTI: 14.5 cm Ao mean P.1 mmHg ANTONIETTA(I,D): 2.6 cm2 Ao V2 VTI: 20.9 cm ANTONIETTA(V,D): 2.6 cm2 sev ratio: 0.69 ANTONIETTA indexed to BSA (cm^2/m^2): 1.3 MV E max javed: 55.1 cm/sec TR max javed: 203.8 cm/sec MV A max javed: 47.7 cm/sec TR max P.6 mmHg MV E/A: 1.2 PA V2 max: 87.8 cm/sec Med Peak E' Javed: 7.3 cm/sec PA V2 mean: 52.0 cm/sec E/E' med: 7.6 PA mean P.4 mmHg Lat Peak E' Javed: 11.2 cm/sec PA pr(Accel): 29.3 mmHg E/E' lat: 4.9 E/e' average: 6.3 MV dec time: 0.24 sec SV(LVOT): 54.4 ml Reading Physician:04:35 PM
[2021-11-15 13:50] LABS: COVID19 -Nasal RAPID Negative (Negative)
--- NOTE | 2021-11-15 18:57 | DI.NM.S_ITS ---
DATE OF SERVICE: 11/15/2021 PROCEDURE PERFORMED: Exercise treadmill stress testing without imaging. ORDERING PROVIDER: Dr. Sourav Helms. INDICATIONS: The patient is a 41-year-old obese female with obstructive sleep apnea, DVT, and PFO with a history of CVA who reports exertional left chest pain and dyspnea. FINDINGS: 1. The patient was able to exercise for 7 minutes, 6 seconds on a standard Jose Rafael protocol suggesting moderately impaired exercise capacity with an CHANTELL of +18%, achieving 10.1 METs. 2. She had a normal heart rate and blood pressure response to exercise, achieving a maximum heart rate of 173 BPM (97% of her predicted maximum). 3. She had no chest pain or other anginal symptoms but had moderate exertional dyspnea. 4. Her resting ECG shows sinus rhythm with normal ST segments. There are no significant ST-segment shifts or arrhythmias with stress. IMPRESSION: 1. Normal exercise treadmill study for ischemia. 2. Moderately impaired exercise capacity without angina or arrhythmias. Wolfgang Ledy - EUGENE/ata/wayne doc#: [id number]/job#: [id number] dd: 11/15/2021 16:53:00 dt: 11/15/2021 18:39:00 DICTATING MD/COPIES TO: Niranjan Frederick MD COPIES MNE: THIAGO;
== END ==
PROVIDERS: PCP Physician Assistant; Referring Provider Internal Medicine Cardiovascular Disease; Visit Provider Internal Medicine Cardiovascular Disease
DX: Q21.1 Atrial septal defect (principal); I07.1 Rheumatic tricuspid insufficiency; R06.00 Dyspnea, unspecified; R07.9 Chest pain, unspecified; E66.9 Obesity, unspecified; G47.33 Obstructive sleep apnea (adult) (pediatric); Z20.822 Contact with and (suspected) exposure to COVID-19; Z86.73 Personal history of transient ischemic attack (TIA), and cerebral infarction without residual deficits
CPT/HCPCS: 87635; 93017; 93306

== ENCOUNTER 2022-10-20 21:16 | Emergency (ER) | payer OTHER, SELFPAY ==
[2022-10-20 21:32] VITALS: BP 130/71; PULSE 91; RESP 18; O2SAT 96
--- NOTE | 2022-10-20 21:37 | PC.NURSE ---
see triage note, denies any urinary symptoms, noticed urine was pink tinged
--- NOTE | 2022-10-20 22:02 | DI.RAD.S_ITS ---
PROCEDURE: XR ABDOMEN 1V INDICATIONS: abd pain and constipation possible renal stone TECHNIQUE: One view of the abdomen acquired. COMPARISON: CT, CT KIDNEY URETER BLADDER ([facility]), 03/08/2019, 11:09. FINDINGS: Surgical changes and devices: None. Bowel: Bowel gas pattern is normal. No visualized constipation or obstruction. Soft tissues: No suspicious abdominal calcifications. Possible calcification versus bowel contents overlying the right renal shadow. Visualized solid organ contours appear normal in size. Bones: No suspicious bony lesions. IMPRESSION: No constipation or obstruction. Possible calcification versus bowel contents are present overlying the right renal shadow. Dictated by: Emilia Zaragoza M.D. on 10/20/2022 at 22:40 Approved by: Emilia Zaragoza M.D. on 10/20/2022 at 22:42
--- NOTE | 2022-10-20 22:02 | ED.GENADULT ---
HPI - General Adult General Chief complaint: Urogenital-Female Stated complaint: URINATING BLOOD, UTI? T-1 PCP REF Time Seen by Provider: 10/20/22 21:45 Source: patient Mode of arrival: Ambulatory History of Present Illness HPI narrative: Patient is a 42-year-old female who is here for evaluation of what she states his potentially blood-tinged urine. She states she is had symptoms for the past day. She is also had some lower abdominal discomfort. No specific dysuria. Does have sometimes when she feels like she is not emptying her bladder. Also has some complaints of constipation. She is no flank pain. No fevers. No vomiting. Has had a hysterectomy. Is not having any vaginal bleeding. She has had urinary tract infections in the past and she states this does not specifically feel like an infection. The reason that she thinks she is blood in her urine is that it has been red tinged. Related Data Home Medications Medication Instructions Recorded Confirmed cetirizine 10 mg tablet 10 mg PO QDAY ##0 06/12/16 multivitamin (Multiple Vitamins 1 tab PO QDAY ##0 06/12/16 tablet) ranitidine HCl 150 mg tablet 150 mg PO BID ##0 06/12/16 bupropion HCl 150 mg 24 hr tablet, 150 mg PO QDAY ##0 01/29/17 extended release (Wellbutrin XL) ibuprofen 800 mg tablet 800 mg PO TID ##0 01/29/17 Adult Low Dose Aspirin 1 tab DAILY 10/20/22 10/20/22 Previous Rx's Medication Instructions Recorded ketorolac 10 mg tablet 10 mg PO Q6H PRN pain #14 tabs 04/19/18 ondansetron 4 mg disintegrating 4 mg PO TID-QID PRN nausea and 04/19/18 tablet vomiting #10 tabs tamsulosin 0.4 mg capsule (Flomax) 0.4 mg PO DAILY #10 caps 04/19/18 ondansetron 4 mg disintegrating 4 mg PO Q6H PRN nausea and 03/08/19 tablet vomiting #7 tabs tramadol 50 mg tablet (Ultram) 50 mg PO Q4H PRN pain #7 tabs 03/08/19 Allergies Allergy/AdvReac Type Severity Reaction Status Date / Time aspirin [ASPIRIN] Allergy Unknown ANAPHYLAXIS Verified 03/08/19 09:57 hydrocodone [HYDROCODONE] Allergy Unknown ANAPHYLAXIS Verified 03/08/19 09:57 Review of Systems Constitutional Constitutional: Reports system reviewed and no additional complaints, except as documented Respiratory Respiratory: Reports system reviewed and no additional complaints, except as documented Gastrointestinal Gastrointestinal: Reports system reviewed and no additional complaints, except as documented Genitourinary Genitourinary: Reports system reviewed and no additional complaints, except as documented Musculoskeletal Musculoskeletal: Reports system reviewed and no additional complaints, except as documented Integumentary/Breasts Skin/Breast: Reports system reviewed and no additional complaints, except as documented Hematologic/Lymphatic On Anticoagulants: No Patient History Medical History Atypical chest pain Social History marital status: Smoking Status: Never smoker Smoking Status: Never smoker Substance Use Type: does not use Exam Initial Vital Signs Initial Vital Signs: Vital Signs Pulse Rate 91 H 10/20/22 21:32 Respiratory Rate 18 10/20/22 21:32 Blood Pressure 130/71 10/20/22 21:32 Pulse Oximetry 96 10/20/22 21:32 Oxygen Delivery Method Room Air 10/20/22 21:32 HENMT Head: normal to inspection and normocephalic Resp Effort & Inspection: normal respiratory effort Auscultation: clear to auscultation bilaterally Cardio Rate: regular rate GI Inspection: normal to inspection Palpation: soft, No firm and No tender Back/Spine/Pelvis Back: No CVA tenderness Skin General: no rashes or lesions noted Neuro General: patient alert, patient awake and moves all extremities Extrem General: normal to inspection and capillary refill normal Course Orders Ordered: ED Orders 10/20/22 22:02 XR abdomen 1V Stat 10/20/22 22:10 Basic Metabolic Panel Stat Complete Blood Count AUTO DIFF Stat Vital Signs Vital signs: Vital Signs - 8 hr 10/20/22 21:32 10/20/22 23:18 Temperature 98.2 F Pulse Rate 91 H 78 Respiratory Rate 18 16 Blood Pressure 130/71 121/79 Pulse Oximetry 96 99 Oxygen Delivery Method Room Air Room Air Medical Decision Making Lab Data Lab results reviewed: Yes I reviewed the patient's lab results. 10/20/22 22:10 10/20/22 22:10 Labs: Lab Results 10/20/22 10/20/22 Range/Units 22:10 22:10 WBC 10.5 (4.5-11.0) X10^3/uL RBC 4.61 (4.0-5.2) X10^6/uL Hgb 13.9 (12.0-16.0) g/dL Hct 40.2 (36-46) % MCV 87.2 (80-100) fL MCH 30.2 (26-34) PG MCHC 34.7 (30-36) % RDW 13.0 (11.6-14.8) % Plt Count 322 (150-400) X10^3/uL Neut % (Auto) 55.0 (50-75) % Lymph % (Auto) 35.4 (25-40) % [place] % (Auto) 6.1 (3-14) % Eos % (Auto) 2.9 (2-4) % Baso % (Auto) 0.6 (0-2) % Neut # (Auto) 5800 (9079-2625) /uL Lymph # (Auto) 3700 (6048-5006) /uL [place] # (Auto) 600 (0-900) /uL Eos # (Auto) 300 (0-450) /uL Baso # (Auto) 100 (0-100) /uL Sodium 137 (137-145) mmol/L Potassium 3.9 (3.4-5.1) mmol/L Chloride 101 (98-107) mmol/L Carbon Dioxide 28 (22-32) mmol/L BUN 14 (7-17) mg/dL Creatinine 0.91 (0.52-1.04) mg/dL Estimated GFR > 60 (>60) mL/min BUN/Creatinine Ratio 15.4 (6-22) Glucose 110 H (70-100) mg/dL Calcium 9.3 (8.4-10.2) mg/dL Point of Care Testing Test Results Negative Urine Dip Bedside Urine Glucose Negative Bedside Urine Bilirubin - Negative Bedside Urine Ketone - Negative Urine Specific [place] 1.010 Bedside Urine Occult Blood - Negative Bedside Urine pH 6.0 Bedside Urine Protein - Negative Bedside Urine Urobilinogen - Negative Bedside Urine Nitrite - Negative Bedside Urine Leukocytes - Negative Esterase Point of care testing: Point of Care Testing Test Results Negative Urine Dip Bedside Urine Glucose Negative Bedside Urine Bilirubin - Negative Bedside Urine Ketone - Negative Urine Specific [place] 1.010 Bedside Urine Occult Blood - Negative Bedside Urine pH 6.0 Bedside Urine Protein - Negative Bedside Urine Urobilinogen - Negative Bedside Urine Nitrite - Negative Bedside Urine Leukocytes - Negative Esterase Imaging Data Abdominal x-ray: Radiologist's Impression: PROCEDURE:? XR ABDOMEN 1V ? INDICATIONS:? abd pain and constipation possible renal stone ? TECHNIQUE:? One view of the abdomen acquired.? ? COMPARISON:? CT, CT KIDNEY URETER BLADDER ([facility]), 03/08/2019, 11:09. ? FINDINGS:? ? Surgical changes and devices:? None.? ? Bowel:? Bowel gas pattern is normal.? No visualized constipation or obstruction. ? Soft tissues:? No suspicious abdominal calcifications.? Possible calcification versus bowel contents overlying the right renal shadow.? Visualized solid organ contours appear normal in size.? ? Bones:? No suspicious bony lesions.? ? IMPRESSION:? ? No constipation or obstruction. ? Possible calcification versus bowel contents are present overlying the right renal shadow. [facility] Narrative Medical decision making narrative: Her urinalysis is negative. There is no blood in her urine today. Also no other signs of a urinary tract infection. Her labs unremarkable. Kidney functions unremarkable. She is not retaining urine. X-ray does not specifically show ureteral stone. The mentioned of a calcification overlying the right pelvis does not correlate with any specific discomfort that the patient is having. There was no indication for antibiotics. I do feel that we should hold on any radiologic studies for now as the feel a CT scan would not be warranted given her workup here in presentation. She understands she did not have any blood in her urine during the visit here today. We will watch and wait to see if her symptoms improve or change. Will have her contact her primary doctor for follow-up. She expressed understanding and agreement. Discharge Plan Departure Patient Disposition: Home Clinical Impression: Hematuria Instructions: DI for Hematuria Activity Restrictions/Additional Instructions: Your urine sample today in the emergency department actually did not show any blood or signs of infection. Your labs showed normal kidney function. I do recommend that you contact your primary doctor for follow-up as you may need further urine samples especially if your symptoms continue. Return to the emergency department for new or worsening symptoms. Prescriptions: No Action ranitidine HCl 150 MG tablet 150 mg PO BID Qty: 0 multivitamin [Multiple Vitamins] 1 EACH tablet 1 tab PO QDAY Qty: 0 cetirizine 10 MG tablet 10 mg PO QDAY Qty: 0 ibuprofen 800 MG tablet 800 mg PO TID Qty: 0 bupropion HCl [Wellbutrin XL] 150 MG tablet extended release 24 hr 150 mg PO QDAY Qty: 0 ketorolac 10 mg tablet 10 mg PO Q6H PRN (Reason: pain) Qty: 14 0RF tamsulosin [Flomax] 0.4 mg capsule 0.4 mg PO DAILY Qty: 10 0RF ondansetron 4 mg tablet,disintegrating 4 mg PO TID-QID PRN (Reason: nausea and vomiting) Qty: 10 0RF ondansetron 4 mg tablet,disintegrating 4 mg PO Q6H PRN (Reason: nausea and vomiting) Qty: 7 0RF tramadol [Ultram] 50 mg tablet 50 mg PO Q4H PRN (Reason: pain) Qty: 7 0RF Adult Low Dose Aspirin 81 mg 1 tab DAILY Rx Instructions: pt states she can tolerate 81 mg without any reaction Referrals: Chan Urbina PA-C [Primary Care Provider] - Stand Alone Forms: Patient Portal/API
[2022-10-20 22:21] LABS: Add Manual Diff / Slide Review NO; Basophils Absolute Auto 100 /uL (0-100); Basophils Percent Auto 0.6 % (0-2); Eosinophils Absolute Auto 300 /uL (0-450); Eosinophils Percent Auto 2.9 % (2-4); Hematocrit 40.2 % (36-46); Hemoglobin 13.9 g/dL (12.0-16.0); Lymphocytes Absolute Auto 3700 /uL (1100-4500); Lymphocytes Percent Auto 35.4 % (25-40); Mean Corpuscular HGB Conc 34.7 % (30-36); Mean Corpuscular Hemoglobin 30.2 PG (26-34); Mean Corpuscular Volume 87.2 fL (80-100); Monocytes Absolute Auto 600 /uL (0-900); Monocytes Percent Auto 6.1 % (3-14); Neutrophils Absolute Auto 5800 /uL (1500-7000); Platelet Count 322 X10^3/uL (150-400); Red Blood Cell Count 4.61 X10^6/uL (4.0-5.2); White Blood Cell Count 10.5 X10^3/uL (4.5-11.0)
[2022-10-20 22:34] LABS: BUN Creatinine Ratio 15.4 (6-22); Blood Urea Nitrogen 14 mg/dL (7-17); Calcium 9.3 mg/dL (8.4-10.2); Carbon Dioxide 28 mmol/L (22-32); Chloride 101 mmol/L (98-107); Estimated Glomerular Filt Rate > 60 mL/min (>60); Glucose 110 mg/dL (70-100); HEMOLYSIS < 15 (0-50); Potassium 3.9 mmol/L (3.4-5.1); Sodium 137 mmol/L (137-145)
[2022-10-20 23:18] VITALS: BP 121/79; PULSE 78; RESP 16; TEMP 36.8; O2SAT 99
== END 2022-10-20 23:19 | disposition home or self-care (01) ==
PROVIDERS: Emergency Provider Emergency Medicine; PCP Physician Assistant
DX: R31.9 Hematuria, unspecified (principal)
CPT/HCPCS: 36415; 51798; 74018; 80048; 81003; 81025; 85025; 99283

== ENCOUNTER 2024-06-23 17:56 | Emergency (ER) | payer OTHER, SELFPAY ==
[2024-06-23] VITALS (7 sets, daily range): BP systolic 114–128; BP diastolic 61–81; PULSE 79–84; RESP 10–18; TEMP 36.9; O2SAT 97–100
--- NOTE | 2024-06-23 17:59 | EKG_ITS ---
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
--- NOTE | 2024-06-23 17:59 | DI.RAD.S_ITS ---
PROCEDURE: XR CHEST 1V INDICATIONS: chest pain TECHNIQUE: One view of the chest was acquired. COMPARISON: None. FINDINGS: Surgical changes and devices: None. Lungs and pleura: Lungs are clear. No pleural effusions or pneumothorax. Mediastinum: Mediastinal contours appear normal. Heart size is normal. Bones and chest wall: No suspicious bony lesions. Overlying soft tissues appear unremarkable. IMPRESSION: No acute cardiopulmonary abnormality is seen. Dictated by: Wojciech Motley M.D. on 06/23/2024 at 19:09 Approved by: Wojciech Motley M.D. on 06/23/2024 at 19:09
[2024-06-23 18:44] LABS: Add Manual Diff / Slide Review NO; Basophils Absolute Auto 100 /uL (0-100); Basophils Percent Auto 0.9 % (0-2); Eosinophils Absolute Auto 200 /uL (0-450); Eosinophils Percent Auto 2.2 % (2-4); Hematocrit 42.4 % (36-46); Hemoglobin 14.3 g/dL (12.0-16.0); Lymphocytes Absolute Auto 4000 /uL (1100-4500); Lymphocytes Percent Auto 36.3 % (25-40); Mean Corpuscular HGB Conc 33.8 % (30-36); Mean Corpuscular Hemoglobin 30.3 PG (26-34); Mean Corpuscular Volume 89.6 fL (80-100); Monocytes Absolute Auto 700 /uL (0-900); Monocytes Percent Auto 6.6 % (3-14); Neutrophils Absolute Auto 5900 /uL (1500-7000); Platelet Count 355 X10^3/uL (150-400); Red Blood Cell Count 4.73 X10^6/uL (4.0-5.2); Red Cell Distribution Width 12.6 % (11.6-14.8); White Blood Cell Count 10.9 X10^3/uL (4.5-11.0)
[2024-06-23 18:55] LABS: INR 1.1 (0.9-1.3); Prothrombin Time 11.9 SECONDS (9.4-12.5)
[2024-06-23 18:57] LABS: PTT Partial Thromboplastin Tim 36 SECONDS (25.1-36.5)
[2024-06-23 19:00] LABS: Alanine Aminotransferase 23 IU/L (<35); Albumin 4.9 g/dL (3.5-5.0); Albumin Globulin Ratio 1.4 (1.0-2.8); Alkaline Phosphatase 83 U/L (38-126); Aspartate Aminotransferase 37 IU/L (14-36); Bilirubin Total 1.1 mg/dL (0.2-1.3); Blood Urea Nitrogen 12 mg/dL (7-17); Calcium 9.9 mg/dL (8.4-10.2); Carbon Dioxide 19 mmol/L (22-32); Chloride 104 mmol/L (98-107); Creatine Kinase 88 U/L (30-135); Estimated Glomerular Filt Rate > 60 mL/min (>60); Globulin 3.5 g/dL (1.7-4.1); Glucose 92 mg/dL (70-100); HEMOLYSIS 40 (0-50); Lipase 112 U/L (23-300); Magnesium 2.1 mg/dL (1.6-2.3); Potassium 4.3 mmol/L (3.4-5.1); Sodium 136 mmol/L (137-145); Total Protein 8.4 g/dL (6.3-8.2)
[2024-06-23 19:11] LABS: NT-proBNP (BNP-Adult 18+) < 20 pg/mL (<125); Troponin I < 0.012 ng/mL (0.01-0.034)
--- NOTE | 2024-06-23 19:28 | ED_ITS ---
HPI - Chest Pain General Chief Complaint: Chest Pain Stated Complaint: chest pain, nausea, indigestion Time Seen by Provider: 06/23/24 19:27 Source: patient, RN notes reviewed and old records reviewed Mode of arrival: Family Vehicle Limitations: no limitations History of Present Illness HPI narrative: 44-year-old female history of prior stroke secondary to being on Gina oral contraceptive and a PFO patient is currently only on Concerta. Patient states she developed some indigestion epigastric discomfort and diarrhea for 5 days ago that has not improved but the epigastric pain has persisted rated it a little bit towards her back. Has been on and off not persistent nothing seems to make it better or worse. She denies fevers or chills. No shortness of breath. Denies any upper chest pain. No radiation down her arms. Patient states no cough cold or congestion that is new. Patient has had some mild nausea on and off. No vomiting. No persistent diarrhea. No black or bloody stools. No lower abdominal pain. No back or flank pain. No urinary symptoms. No new swelling in extremities. Patient states she was currently asymptomatic. States home medications include Concerta. Was scheduled to have her PFO repaired but did not ultimately get it done. Describes allergy to hydrocodone. Has had prior partial hysterectomy has 1 ovary present as of 2017. No regular tobacco, no alcohol no recreational drugs. Patient is unsure of family history she was adopted. Related Data Home Medications Medication Instructions Recorded Confirmed cetirizine 10 mg tablet 10 mg PO QDAY ##0 06/12/16 multivitamin (Multiple Vitamins 1 tab PO QDAY ##0 06/12/16 tablet) ranitidine HCl 150 mg tablet 150 mg PO BID ##0 06/12/16 bupropion HCl 150 mg 24 hr tablet, 150 mg PO QDAY ##0 01/29/17 extended release (Wellbutrin XL) ibuprofen 800 mg tablet 800 mg PO TID ##0 01/29/17 Adult Low Dose Aspirin 1 tab DAILY 10/20/22 10/20/22 Previous Rx's Medication Instructions Recorded ketorolac 10 mg tablet 10 mg PO Q6H PRN pain #14 tabs 04/19/18 ondansetron 4 mg disintegrating 4 mg PO TID-QID PRN nausea and 04/19/18 tablet vomiting #10 tabs tamsulosin 0.4 mg capsule (Flomax) 0.4 mg PO DAILY #10 caps 04/19/18 ondansetron 4 mg disintegrating 4 mg PO Q6H PRN nausea and 03/08/19 tablet vomiting #7 tabs tramadol 50 mg tablet (Ultram) 50 mg PO Q4H PRN pain #7 tabs 03/08/19 Allergies Allergy/AdvReac Type Severity Reaction Status Date / Time hydrocodone [HYDROCODONE] Allergy Unknown ANAPHYLAXIS Verified 06/23/24 18:47 Review of Systems Review of Systems ROS Unobtainable: All systems reviewed & are unremarkable except as noted in HPI and below Patient History Medical History (Updated 06/23/24 @ 19:44 by Nisa Yusuf DO) Atypical chest pain Social History marital status: Smoking Status: Never smoker Smoking Status: Never smoker Exam Narrative Exam Narrative: GENERAL: Alert and oriented x three, female in no acute distress HEENT: Head normocephalic, atraumatic, EOMI, pupils reactive, face symmetric, moist mucous membranes NECK: Supple, full range of motion CARDIOVASCULAR: Regular rate and rhythm without murmurs, rubs or gallops. No JVD, no edema bilateral lower extremities. RESPIRATORY: Breath sounds equal bilaterally, no wheezes rales or rhonchi. No tachypnea or accessory muscle use. ABDOMEN: Soft, nontender. Normoactive bowel sounds all 4 quadrants. No guarding or rebound, rigidity, no mass : No CVA tenderness EXTREMITIES: Normal range of motion, no clubbing or edema. Neurovascularly intact NEUROLOGICAL: Cranial nerves II through XII grossly intact. Moving all extremities SKIN: Warm, dry, no petechiae, no rashes or lesions. Initial Vital Signs Initial Vital Signs: Vital Signs Pulse Rate 81 06/23/24 18:09 Respiratory Rate 18 06/23/24 18:09 Blood Pressure 124/76 06/23/24 18:09 Pulse Oximetry 100 06/23/24 18:09 Scores HEART Score Heart Score history: Slightly Suspicious Heart Score EKG: Non-Specific repolarization disturbance Heart Score Age: < 45 years old Heart Score risk factors: No known risk factors Heart Score troponin: < or = to normal limit Heart Score Total: 1 Course Orders Ordered: ED Orders 06/23/24 17:59 XR chest 1V Stat EKG-12 Lead Stat 06/23/24 18:31 Complete Blood Count AUTO DIFF Stat Comprehensive Metabolic Panel Stat Lipase Stat Magnesium Stat NT-proBNP (BNP-Adult 18+) Stat PTT Partial Thromboplastin Federico Stat Prothrombin Time INR Stat Troponin & CK Cardiac Panel Stat 06/23/24 20:28 EKG-12 Lead Stat 06/23/24 20:30 Trop I [Troponin I] Stat Discontinued Medications Aspirin (Aspirin 81 Mg Chew Tab) 324 mg PO NOW ONE Stop: 06/23/24 18:49 Last Admin: 06/23/24 20:16 Dose: 324 mg Documented By: SB Vital Signs Vital signs: Vital Signs - 8 hr 06/23/24 18:11 06/23/24 18:30 06/23/24 19:31 Temperature 98.4 F Pulse Rate 83 80 79 Respiratory Rate 16 18 17 Blood Pressure 124/76 124/76 128/72 Pulse Oximetry 97 99 100 Oxygen Delivery Method Room Air 06/23/24 20:00 06/23/24 20:30 06/23/24 21:00 Temperature Pulse Rate 84 84 81 Respiratory Rate 17 17 10 L Blood Pressure 114/80 121/81 Pulse Oximetry 97 100 98 Oxygen Delivery Method Room Air 06/23/24 21:00 Temperature Pulse Rate Respiratory Rate Blood Pressure 114/61 Pulse Oximetry Oxygen Delivery Method MDM - Chest Pain Lab Data 06/23/24 18:31 06/23/24 18:31 Labs: Lab Results 06/23/24 06/23/24 Range/Units 18:31 20:30 WBC 10.9 (4.5-11.0) X10^3/uL RBC 4.73 (4.0-5.2) X10^6/uL Hgb 14.3 (12.0-16.0) g/dL Hct 42.4 (36-46) % MCV 89.6 (80-100) fL MCH 30.3 (26-34) PG MCHC 33.8 (30-36) % RDW 12.6 (11.6-14.8) % Plt Count 355 (150-400) X10^3/uL Neut % (Auto) 54.0 (50-75) % Lymph % (Auto) 36.3 (25-40) % [place] % (Auto) 6.6 (3-14) % Eos % (Auto) 2.2 (2-4) % Baso % (Auto) 0.9 (0-2) % Neut # (Auto) 5900 (5547-9945) /uL Lymph # (Auto) 4000 (4502-9210) /uL [place] # (Auto) 700 (0-900) /uL Eos # (Auto) 200 (0-450) /uL Baso # (Auto) 100 (0-100) /uL PT 11.9 (9.4-12.5) SECONDS INR 1.1 (0.9-1.3) APTT 36 (25.1-36.5) SECONDS Sodium 136 L (137-145) mmol/L Potassium 4.3 (3.4-5.1) mmol/L Chloride 104 (98-107) mmol/L Carbon Dioxide 19 L (22-32) mmol/L BUN 12 (7-17) mg/dL Creatinine 0.80 (0.52-1.04) mg/dL Estimated GFR > 60 (>60) mL/min BUN/Creatinine Ratio 15.0 (6-22) Glucose 92 (70-100) mg/dL Calcium 9.9 (8.4-10.2) mg/dL Magnesium 2.1 (1.6-2.3) mg/dL Total Bilirubin 1.1 (0.2-1.3) mg/dL AST 37 H (14-36) IU/L ALT 23 (<35) IU/L Alkaline Phosphatase 83 (38-126) U/L Total Creatine Kinase 88 (30-135) U/L Troponin I < 0.012 < 0.012 (0.01-0.034) ng/mL NT-Pro-B Natriuret Pep < 20 (<125) pg/mL Total Protein 8.4 H (6.3-8.2) g/dL Albumin 4.9 (3.5-5.0) g/dL Globulin 3.5 (1.7-4.1) g/dL Albumin/Globulin Ratio 1.4 (1.0-2.8) Lipase 112 (23-300) U/L ECG Data Attestation: I personally reviewed and interpreted this ECG as follows: Prior ECG tracings: available for review Interpretation: Sinus rhythm rate of 74 MI 174 QRS 84 QTC of 432. Nonspecific change prior from 07/01/2016. Sinus rhythm rate of 79 MI 178 QRS 86 QTC of 458, no acute ST elevation depression noted nonspecific change. MDM Narrative Medical decision making narrative: 44-year-old female with epigastric pain had nausea and diarrhea earlier in the week still has a little bit of nausea on and off describes pain is radiating and a little bit towards her back. On exam no reproducible pain in the abdomen or chest. EKG shows sinus rhythm with nonspecific change on repeat. Labs show normal white count, hemoglobin and platelets. Coags are negative sodium is 136 CO2 is 19 otherwise appropriate electrolytes, BUN creatinine, AST is 37 but normal bilirubin ALT and lipase. Troponins less than 0.012 with a BNP of less than 20. Repeat troponin is less than 0.012 CXR is negative. Patient is felt appropriate for discharge home with follow up. Discharge Plan Departure Patient Disposition: Home Clinical Impression: Epigastric pain Instructions: DI for Epigastric Pain Activity Restrictions/Additional Instructions: Follow up for recheck, epigastric pain can sometimes be more related to the abdomen versus the chest. If you are having persistent symptoms you can try Pepcid 40 mg daily over the counter. Please return if you are having new or worsening symptoms fevers increasing epigastric, abdominal or chest pain. Shortness of breath, lightheadedness or passing out, vomiting, black or bloody stools or other new or concerning changes. Prescriptions: No Action ranitidine HCl 150 MG tablet 150 mg PO BID Qty: 0 multivitamin [Multiple Vitamins] 1 EACH tablet 1 tab PO QDAY Qty: 0 cetirizine 10 MG tablet 10 mg PO QDAY Qty: 0 ibuprofen 800 MG tablet 800 mg PO TID Qty: 0 bupropion HCl [Wellbutrin XL] 150 MG tablet extended release 24 hr 150 mg PO QDAY Qty: 0 ketorolac 10 mg tablet 10 mg PO Q6H PRN (Reason: pain) Qty: 14 0RF tamsulosin [Flomax] 0.4 mg capsule 0.4 mg PO DAILY Qty: 10 0RF ondansetron 4 mg tablet,disintegrating 4 mg PO TID-QID PRN (Reason: nausea and vomiting) Qty: 10 0RF ondansetron 4 mg tablet,disintegrating 4 mg PO Q6H PRN (Reason: nausea and vomiting) Qty: 7 0RF tramadol [Ultram] 50 mg tablet 50 mg PO Q4H PRN (Reason: pain) Qty: 7 0RF Adult Low Dose Aspirin 81 mg 1 tab DAILY Rx Instructions: pt states she can tolerate 81 mg without any reaction Referrals: Chan Urbina PA-C [Primary Care Provider] - Stand Alone Forms: Patient Portal/API/Survey
[2024-06-23] MEDS: ASPIRIN 81 MG CHEW TAB 324 MG PO (20:16)
--- NOTE | 2024-06-23 20:28 | EKG_ITS ---
[address] [address] Test Date: 2024-06-23 Pat Name: Ledy Goss Department: [facility] Room: Gender: Female Eradicator: : 1980 Requested By: Order Number: [id number] Reading MD: Ranulfo Banda Measurements Intervals [place] Rate: 79 P: 63 NE: 178 QRS: 18 QRSD: 86 T: 40 QT: 400 QTc: 458 Interpretive Statements Normal sinus rhythm Electronically Signed On 06-27-2024 18:25:02 PDT by Ranulfo Banda
[2024-06-23 20:56] LABS: Troponin I < 0.012 ng/mL (0.01-0.034)
== END 2024-06-23 21:27 | disposition home or self-care (01) ==
PROVIDERS: Emergency Medicine; Emergency Provider Emergency Medicine; PCP Physician Assistant
DX: R10.13 Epigastric pain (principal); Z90.710 Acquired absence of both cervix and uterus; R07.9 Chest pain, unspecified
CPT/HCPCS: 36415; 71045; 80053; 82550; 83690; 83735; 83880; 84484; 85025; 85610; 85730; 93005; 99284

== ENCOUNTER 2024-07-11 17:25 | Emergency (ER) | payer OTHER, SELFPAY ==
[2024-07-11 17:29] VITALS: BP 126/75; PULSE 86; RESP 18; TEMP 36.7; O2SAT 99; BMI 32.0
--- NOTE | 2024-07-11 17:33 | DI.RAD.S_ITS ---
PROCEDURE: XR KNEE LT 3V INDICATIONS: twisted while skiing/pain TECHNIQUE: 3 views of the knee were acquired. COMPARISON: None. FINDINGS: Bones: No fractures or dislocations. No suspicious bony lesions. The knee joint spaces appear well preserved. Soft tissues: No this significant joint effusion. No suspicious soft tissue calcifications. IMPRESSION: No significant plain film abnormality is seen. If it would be helpful for clinical management decision making, please consider a dedicated, scheduled knee MRI for further evaluation (assuming that there is no contraindication). Dictated by: Carmelo Ocampo M.D. on 07/11/2024 at 16:59 Approved by: Carmelo Ocampo M.D. on 07/11/2024 at 16:59
--- NOTE | 2024-07-11 17:39 | ED_ITS ---
HPI - Extremity Injury (Lower) <Esther Patel PA-C - Last Filed: 07/11/24 18:40> General Chief Complaint: Extremity Injury, Lower Stated Complaint: knee injury Time Seen by Provider: 07/11/24 17:36 Source: patient Mode of arrival: Wheelchair History of Present Illness HPI Narrative: This is a 44-year-old woman who presents with concern for left knee pain and injury from skiing today. She says that around 1:00 p.m. she was going downhill. Her partner says that he heard her make a sound and he turned around and saw that she was losing control. Said it looked like she was trying to turn right with her skis but then her left ski pointed to the left causing her knee to twist with her foot going outwards and she went down in a tumble. Patient states she was unable to move her knee due to pain or get up and walk afterwards and she was to bargained down the ski slope to the bottom after being placed in a knee splint. She received Zofran and ibuprofen from [facility]. She states that they advised she go in for x-rays as she was still having pain in the knee and a spasming sensation on the inside of her leg after her injury. She denies any numbness or tingling in the extremity. Has recently just attempted to bear weight with slight pressure and said that this felt okay. Denies any previous injuries to this knee. Denies any other injuries from her fall did not hit her head or lose consciousness. Related Data Home Medications Medication Instructions Recorded Confirmed cetirizine 10 mg tablet 10 mg PO QDAY ##0 06/12/16 multivitamin (Multiple Vitamins 1 tab PO QDAY ##0 06/12/16 tablet) ranitidine HCl 150 mg tablet 150 mg PO BID ##0 06/12/16 bupropion HCl 150 mg 24 hr tablet, 150 mg PO QDAY ##0 01/29/17 extended release (Wellbutrin XL) ibuprofen 800 mg tablet 800 mg PO TID ##0 01/29/17 Adult Low Dose Aspirin 1 tab DAILY 10/20/22 10/20/22 Previous Rx's Medication Instructions Recorded ketorolac 10 mg tablet 10 mg PO Q6H PRN pain #14 tabs 04/19/18 ondansetron 4 mg disintegrating 4 mg PO TID-QID PRN nausea and 04/19/18 tablet vomiting #10 tabs tamsulosin 0.4 mg capsule (Flomax) 0.4 mg PO DAILY #10 caps 04/19/18 ondansetron 4 mg disintegrating 4 mg PO Q6H PRN nausea and 03/08/19 tablet vomiting #7 tabs tramadol 50 mg tablet (Ultram) 50 mg PO Q4H PRN pain #7 tabs 03/08/19 lidocaine 5 % topical ointment 1 applic topical TID PRN pain 10 07/11/24 days #30 grams Allergies Allergy/AdvReac Type Severity Reaction Status Date / Time hydrocodone [HYDROCODONE] Allergy Unknown ANAPHYLAXIS Verified 06/23/24 18:47 Review of Systems <Esther Patel PA-C - Last Filed: 07/11/24 18:40> Review of Systems Narrative: See HPI Patient History <Esther Patel PA-C - Last Filed: 07/11/24 18:40> Medical History (Updated 07/11/24 @ 18:28 by Esther Patel PA-C) Atypical chest pain Social History marital status: Smoking Status: Never smoker Smoking Status: Never smoker Exam <Esther Patel PA-C - Last Filed: 07/11/24 18:40> Narrative Exam Narrative: GENERAL: [44] year old patient appears stated age. Well-developed patient, in mild distress. HEAD: Atraumatic. Normocephalic. EYES: Pupils equal round and reactive. Extraocular motions intact. No scleral icterus. No injection or drainage. ENT: Nose without bleeding, purulent drainage. Airway patent. NECK: Trachea midline. CARDIOVASCULAR: Regular rate and rhythm without murmurs, gallops, or rubs. RESPIRATORY: Clear to auscultation. Breath sounds equal bilaterally. No wheezes, rales, or rhonchi. GASTROINTESTINAL: Abdomen soft, non-tender, nondistended. EXTREMITIES: The affected left leg there is no laxity with varus and valgus stress. Negative anterior and posterior drawer. There is slight tenderness ove r the patellar tendon. There is tenderness over the medial joint line and pes anserine insertion/distal semi tendinosis, gracilis and sartorius. No significant swelling noted. No erythema and no broken skin. Distal pulses intact. Normal active range of motion at the ankle and no increased knee pain with dorsiflexion and plantar flexion. Patient has increased pain with flexing the knee and worse with straightening it, most comfortable in a slight knee bent position with support. No edema or joint tenderness. NEURO: AOx3. SKIN: No rash or erythema of visible areas Initial Vital Signs Initial Vital Signs: Vital Signs Temperature 98.1 F 07/11/24 17:29 Pulse Rate 86 07/11/24 17:29 Respiratory Rate 18 07/11/24 17:29 Blood Pressure 126/75 07/11/24 17:29 Pulse Oximetry 99 07/11/24 17:29 Oxygen Delivery Method Room Air 07/11/24 17:29 <Nisa Yusuf DO - Last Filed: 07/12/24 15:38> Initial Vital Signs Initial Vital Signs: Vital Signs Temperature 98.1 F 07/11/24 17:29 Pulse Rate 86 07/11/24 17:29 Respiratory Rate 18 07/11/24 17:29 Blood Pressure 126/75 07/11/24 17:29 Pulse Oximetry 99 07/11/24 17:29 Oxygen Delivery Method Room Air 07/11/24 17:29 Course <Esther Patel PA-C - Last Filed: 07/11/24 18:40> Orders Ordered: ED Orders 07/11/24 17:33 XR knee LT 3V Stat Vital Signs Vital signs: Vital Signs - 8 hr 07/11/24 17:29 Temperature 98.1 F Pulse Rate 86 Respiratory Rate 18 Blood Pressure 126/75 Pulse Oximetry 99 Oxygen Delivery Method Room Air <DO Deloris Nj Last Filed: 07/12/24 15:38> Orders Ordered: ED Orders 07/11/24 17:33 XR knee LT 3V Stat Vital Signs Vital signs: Vital Signs - 8 hr 07/11/24 17:29 Temperature 98.1 F Pulse Rate 86 Respiratory Rate 18 Blood Pressure 126/75 Pulse Oximetry 99 Oxygen Delivery Method Room Air MDM - Extremity Injury (Lower) <LILLIAN Mays Last Filed: 07/11/24 18:40> Differential Diagnosis Differential diagnosis: Likely other (Knee sprain, muscle strain) Imaging Data Extremity x-ray #1: My Impression: Agree with Radiology interpretation Radiologist's Impression: [address] [address] XRay Report Signed Patient: Ledy Goss MR#: [id number] : 1980 Acct:[id number] Age/Sex: 44 / F Date of Service: 07/11/24 Loc: ED Accession Number: [id number] Procedure: XR knee LT 3V Ordering Provider: Nisa Yusuf D.O. PROCEDURE: XR KNEE LT 3V INDICATIONS: twisted while skiing/pain TECHNIQUE: 3 views of the knee were acquired. COMPARISON: None. FINDINGS: Bones: No fractures or dislocations. No suspicious bony lesions. The knee joint spaces appear well preserved. Soft tissues: No this significant joint effusion. No suspicious soft tissue calcifications. IMPRESSION: No significant plain film abnormality is seen. If it would be helpful for clinical management decision making, please consider a dedicated, scheduled knee MRI for further evaluation (assuming that there is no contraindication). Dictated by: Carmelo Ocampo M.D. on 07/11/2024 at 16:59 Approved by: Carmelo Ocampo M.D. on 07/11/2024 at 16:59 [facility] Narrative Medical decision making narrative: This is a generally healthy 44-year-old woman presenting with concern for left knee pain after she twisted it while skiing today during a fall. No other injury sustained. Exam is suggestive of a muscle strain/mild sprain. X-rays returned negative for significant effusion or fracture. She was placed in a knee immobilizer and crutches, advised to follow up with PCP, consider seeing orthopedics if she is having persistent pain after 7-10 days or if she worsens. Advised Tylenol, ibuprofen, RICE. Return precautions provided, follow-up plan discussed, all questions answered. Discharge Plan Departure Patient Disposition: Home Clinical Impression: Sprain of left knee Qualifiers: Encounter type: initial encounter Involved ligament of knee: unspecified ligament Qualified Code(s): S83.92XA - Sprain of unspecified site of left knee, initial encounter Muscle strain of left knee Qualifiers: Encounter type: initial encounter Qualified Code(s): S86.912A - Strain of unspecified muscle(s) and tendon(s) at lower leg level, left leg, initial encounter Instructions: DI for Knee Sprain Activity Restrictions/Additional Instructions: *You have been diagnosed with [mild knee sprain, strained muscle] *What to do: *Please continue to take your regular medications as directed. [1 ] New medication prescriptions sent to your pharmacy: [Lidocaine] [ ] New medication written as a paper prescription [ ] No new medications given *Please follow up with your primary care provider in 2-3 days, call for an appointment. Let them know you were seen in the Emergency Department and that we ask that you be seen in follow up. We will electronically transmit a record of today's note if your PCP is in our system. You twisted her knee while skiing today. X-rays showed no evidence of fracture or significant effusion (fluid collection in your knee joint), your exam suggest that you have a strained muscle in the medial side of her knee and likely a mild sprain as well. This will heal best if you rest and try to use rest ice compression elevation for the next 24-48 hours this is especially important. In general I would like it to be nonweightbearing and use the crutches and knee brace we provided in the emergency department for the next 7-10 days. If at that time you are feeling completely pain-free and having no difficulty with weight-bearing and ambulation it is reasonable to stop using these. But it can take up to 3 weeks for a sprain to heal even if you treat it well. You can follow up with your primary care provider, I have also included information for our on-call orthopedic doctor today and you can call their office if you have concerns or would like to be seen by Orthopedics to get scheduled to be seen in clinic. I recommend Tylenol and ibuprofen for pain as well as the rest ice compression elevation, I also prescribed some lidocaine (to [facility]) for you that you can use topically to help with pain if needed. You may also find diclofenac or Voltaren gel is helpful, this is available [id number]. I hope you feel better soon. *If you do not have a primary care provider please contact the [facility] Resource line at [phone]. They will ask some questions about your medical history and help get you set up with a doctor in the community. *Return to Emergency Department if you should have any new, worsening or concerning symptoms, such as [fever greater than 101 F, shaking chills, worsening pain, persistent vomiting or other bothersome symptoms] Prescriptions: New lidocaine 5 % ointment 1 applic topical TID PRN (Reason: pain) 10 Days Qty: 30 0RF No Action ranitidine HCl 150 MG tablet 150 mg PO BID Qty: 0 multivitamin [Multiple Vitamins] 1 EACH tablet 1 tab PO QDAY Qty: 0 cetirizine 10 MG tablet 10 mg PO QDAY Qty: 0 ibuprofen 800 MG tablet 800 mg PO TID Qty: 0 bupropion HCl [Wellbutrin XL] 150 MG tablet extended release 24 hr 150 mg PO QDAY Qty: 0 ketorolac 10 mg tablet 10 mg PO Q6H PRN (Reason: pain) Qty: 14 0RF tamsulosin [Flomax] 0.4 mg capsule 0.4 mg PO DAILY Qty: 10 0RF ondansetron 4 mg tablet,disintegrating 4 mg PO TID-QID PRN (Reason: nausea and vomiting) Qty: 10 0RF ondansetron 4 mg tablet,disintegrating 4 mg PO Q6H PRN (Reason: nausea and vomiting) Qty: 7 0RF tramadol [Ultram] 50 mg tablet 50 mg PO Q4H PRN (Reason: pain) Qty: 7 0RF Adult Low Dose Aspirin 81 mg 1 tab DAILY Rx Instructions: pt states she can tolerate 81 mg without any reaction Referrals: Chan Urbina PA-C [Primary Care Provider] - Ana Fleming MD [Physician] - (Mild knee sprain/strain may need follow up if not improving) Stand Alone Forms: Patient Portal/API/Survey ED Sign-out <Nisa Yusuf DO - Last Filed: 07/12/24 15:38> Cosign ED Attending Kevin Attestation: I was immediately available in the department for consultation.
== END 2024-07-11 18:50 | disposition home or self-care (01) ==
PROVIDERS: Emergency Provider Student in an Organized Health Care Education/Training Program; PCP Physician Assistant
DX: S83.92XA Sprain of unspecified site of left knee, initial encounter (principal); S86.912A Strain of unspecified muscle(s) and tendon(s) at lower leg level, left leg, initial encounter; Y93.23 Activity, snow (alpine) (downhill) skiing, snowboarding, sledding, tobogganing and snow tubing
CPT/HCPCS: 29530; 73562; 99282; 99283

== ENCOUNTER → 2025-01-15 11:06 | Outpatient (CLI) | payer OTHER, SELFPAY | PROVIDERS: PCP Student in an Organized Health Care Education/Training Program; Visit Provider Urology | DX: R39.9 Unspecified symptoms and signs involving the genitourinary system (principal) | CPT/HCPCS: 87077; 87086; 87186 ==

== ENCOUNTER 2025-02-16 10:32 | Emergency (ER) | payer OTHER, SELFPAY ==
[2025-02-16 10:48] VITALS: BP 148/84; PULSE 88; RESP 16; TEMP 36.2; O2SAT 100; BMI 36.6
--- NOTE | 2025-02-16 10:54 | DI.CT.S_ITS ---
PROCEDURE: CT KIDNEY URETER BLADDER (KUB)
--- NOTE | 2025-02-16 10:57 | ED_ITS ---
HPI - Female Genitourinary
--- NOTE | 2025-02-16 10:57 | ED.FEMALEGU ---
HPI - Female Genitourinary General Chief complaint: Urogenital-Female Stated complaint: Possible UTI OR Bladder infection Time Seen by Provider: 02/16/25 10:56 Source: patient, RN notes reviewed and old records reviewed Mode of arrival: Ambulatory Limitations: no limitations History of Present Illness HPI Narrative: 45-year-old female with a history of prior stroke on aspirin 81 mg daily patient has a known kidney stone supposed to follow up with Urology for a renal stent. She notes right flank pain that started last night hematuria she noted a little bit dysuria last night but does not appreciated as much today. No fevers, she has had nausea but no vomiting. She notes some diarrhea last night but no black or bloody stools. She denies any flank pain on the left. She denies any anterior abdominal pain. She rates her pain as 6/10. Patient has had UTIs in the past. She has had a prior hysterectomy. She notes anaphylaxis with hydrocodone and states other narcotics make her very nauseated. She states aspirin her only daily medication. She does have follow up with Dr. Napoles, urology. Related Data Home Medications ?Medication ?Instructions ?Recorded ?Confirmed multivitamin (Multiple Vitamins 1 tab PO QDAY ##0 06/12/16 01/15/25 tablet) Adult Low Dose Aspirin 1 tab DAILY 10/20/22 01/15/25 clonidine HCl 0.3 mg tablet 0.3 mg PO BEDTIME PRN 01/15/25 01/15/25 cyclobenzaprine 10 mg tablet 10 mg PO BEDTIME PRN 01/15/25 01/15/25 metformin 500 mg tablet 500 mg PO DAILY 01/15/25 01/15/25 Previous Rx's ?Medication ?Instructions ?Recorded sulfamethoxazole 800 1 tab PO BID #14 tabs 01/17/25 mg-trimethoprim 160 mg tablet ciprofloxacin HCl 500 mg tablet 500 mg PO BID #14 tabs 02/16/25 meloxicam 7.5 mg tablet 7.5 mg PO BID PRN pain #14 tabs 02/16/25 tamsulosin 0.4 mg capsule (Flomax) 0.4 mg PO DAILY #10 caps 02/16/25 Allergies Allergy/AdvReac Type Severity Reaction Status Date / Time hydrocodone (HYDROCODONE) Allergy Unknown ANAPHYLAXIS Verified 11/27/24 06:07 Review of Systems Review of Systems ROS Unobtainable: All systems reviewed & are unremarkable except as noted in HPI and below Patient History Medical History Hx of migraines Hx of renal calculi Hx of History of depression Hx of completed stroke Atypical chest pain Surgical History Hx of vaginal hysterectomy Hx of tubal ligation Hx of breast biopsy Hx of appendectomy Exam Narrative Exam Narrative: GENERAL: Alert and oriented x three, well-appearing female in mild distress HEENT: Head normocephalic, atraumatic, EOMI, pupils reactive, face symmetric, moist mucous membranes NECK: Supple, full range of motion CARDIOVASCULAR: Regular rate and rhythm without murmurs, rubs or gallops. RESPIRATORY: Breath sounds equal bilaterally, no wheezes rales or rhonchi. ABDOMEN: Soft, nontender. Normoactive bowel sounds all 4 quadrants. No guarding or rebound, rigidity, no mass : No CVA tenderness EXTREMITIES: Normal range of motion, no clubbing or edema. Neurovascularly intact NEUROLOGICAL: Cranial nerves II through XII grossly intact. Moving all extremities SKIN: Warm, dry, no petechiae, no rashes or lesions. Initial Vital Signs Initial Vital Signs: Vital Signs Temperature 97.1 F L 02/16/25 10:48 Pulse Rate 88 02/16/25 10:48 Respiratory Rate 16 02/16/25 10:48 Blood Pressure 148/84 H 02/16/25 10:48 Pulse Oximetry 100 02/16/25 10:48 Oxygen Delivery Method Room Air 02/16/25 10:48 Course Orders Ordered: ED Orders 02/16/25 10:54 CT kidney ureter bladder (KUB) Stat 02/16/25 11:07 Urine Culture Stat Urine Microscopic Stat 02/16/25 11:15 Complete Blood Count AUTO DIFF Stat Comprehensive Metabolic Panel Stat Lipase Stat Discontinued Medications Ketorolac Tromethamine (Ketorolac 30 Mg/Ml Vial) 15 mg IV NOW ONE Stop: 02/16/25 10:56 Last Admin: 02/16/25 11:16 Dose: 15 mg Documented By: ALEJANDRA Ondansetron HCl (Ondansetron 4 Mg/2 Ml Inj) 4 mg IV NOW PRN PRN Reason: Nausea And Vomiting Last Admin: 02/16/25 11:16 Dose: 4 mg Documented By: ALEJANDRA Ondansetron HCl (Ondansetron 4 Mg Odt) 4 mg PO NOW PRN PRN Reason: Nausea And Vomiting Vital Signs Vital signs: Vital Signs - 8 hr 02/16/25 10:48 02/16/25 13:01 02/16/25 13:27 Temperature 97.1 F L Pulse Rate 88 81 80 Respiratory Rate 16 16 16 Blood Pressure 148/84 H 132/73 138/84 Pulse Oximetry 100 96 96 Oxygen Delivery Method Room Air Room Air Room Air MDM - Female Genitourinary Lab Data 02/16/25 11:15 02/16/25 11:15 Labs: Lab Results 02/16/25 02/16/25 Range/Units 11:07 11:15 WBC 10.4 (4.5-11.0) X10^3/uL RBC 4.77 (4.0-5.2) X10^6/uL Hgb 14.6 (12.0-16.0) g/dL Hct 42.3 (36-46) % MCV 88.7 (80-100) fL MCH 30.7 (26-34) PG MCHC 34.5 (30-36) % RDW 12.8 (11.6-14.8) % Plt Count 363 (150-400) X10^3/uL Neut % (Auto) 59.1 (50-75) % Lymph % (Auto) 29.4 (25-40) % [place] % (Auto) 6.2 (3-14) % Eos % (Auto) 4.2 H (2-4) % Baso % (Auto) 1.1 (0-2) % Neut # (Auto) 6100 (1820-5771) /uL Lymph # (Auto) 3000 (1031-5961) /uL [place] # (Auto) 600 (0-900) /uL Eos # (Auto) 400 (0-450) /uL Baso # (Auto) 100 (0-100) /uL Sodium 140 (137-145) mmol/L Potassium 4.0 (3.4-5.1) mmol/L Chloride 103 (98-107) mmol/L Carbon Dioxide 26 (22-32) mmol/L BUN 11 (7-17) mg/dL Creatinine 0.87 (0.52-1.04) mg/dL Estimated GFR > 60 (>60) mL/min BUN/Creatinine Ratio 12.6 (6-22) Glucose 104 H (70-99) mg/dL Calcium 10.1 (8.4-10.2) mg/dL Total Bilirubin 0.7 (0.2-1.3) mg/dL AST 26 (14-36) IU/L ALT 21 (<35) IU/L Alkaline Phosphatase 90 (38-126) U/L Total Protein 8.5 H (6.3-8.2) g/dL Albumin 4.9 (3.5-5.0) g/dL Globulin 3.6 (1.7-4.1) g/dL Albumin/Globulin Ratio 1.4 (1.0-2.8) Lipase 107 (23-300) U/L Urine RBC None seen (0-5/HPF) Urine WBC 1-5/hpf (0-5/HPF) Ur Squamous Epith Cells 1-5 /hpf (0-5/HPF) Urine Bacteria None seen (None) Ur Culture Indicated? Cult not indicated Vol Urine Centrifuged 10ml (spun) Urine Dip Bedside Urine Glucose Negative Bedside Urine Bilirubin - Negative Bedside Urine Ketone - Negative Urine Specific [place] 1.005 Bedside Urine Occult Blood + Bedside Urine pH 6.5 Bedside Urine Protein - Negative Bedside Urine Urobilinogen - Negative Bedside Urine Nitrite - Negative Bedside Urine Leukocytes +/- 15 Esterase MDM Narrative Medical decision making narrative: Labs labs show normal white count, hemoglobin and platelets, electrolytes are appropriate BUN creatinine normal glucose is 104, LFTs are negative total protein is 8.5. CT KUB shows unchanged right proximal ureteral calculus seen measuring up to 5 mm not significantly progressing compared to CT from 11/27/2024 to ureter seen proximally which maybe fuse distal to the calculus no new ureteral calculus. Urine point of care shows leuks no nitrates, patient has RBCs 1-5 white cells 1-5 squamous no bacteria. Patient had Toradol and Zofran. Patient is feeling much improved on recheck. Spoke with Dr. Napoles, urology who patient has been following with we will have patient follow up with the office. Discharge Plan Departure Patient Disposition: Home Clinical Impression: Calculus of right ureter Instructions: DI for Kidney Stones Activity Restrictions/Additional Instructions: Follow up with Urology, I spoke with Dr. Napoles. You have a right ureteral calculus that is close to the kidney, you also have two ureters from the right kidney. That has possible infection take oral antibiotics until completed. Take Flomax daily until completed. You can take meloxicam 1 tablet every 12 hours as needed for pain. If inadequate you can take acetaminophen up to a 1000 mg for pain along with this medication. Prescription sent to Please return for fevers, new or worsening abdominal back or flank pain, vomiting, difficulty or inability urinate or other new or concerning changes. Prescriptions: New tamsulosin [Flomax] 0.4 mg capsule 0.4 mg PO DAILY Qty: 10 0RF ciprofloxacin HCl 500 mg tablet 500 mg PO BID Qty: 14 0RF meloxicam 7.5 mg tablet 7.5 mg PO BID PRN (Reason: pain) Qty: 14 0RF No Action multivitamin [Multiple Vitamins] 1 EACH tablet 1 tab PO QDAY Qty: 0 sulfamethoxazole-trimethoprim 800-160 mg tablet 1 tab PO BID Qty: 14 0RF Adult Low Dose Aspirin 81 mg 1 tab DAILY Rx Instructions: pt states she can tolerate 81 mg without any reaction cyclobenzaprine 10 mg tablet 10 mg PO BEDTIME PRN metformin 500 mg tablet 500 mg PO DAILY clonidine HCl 0.3 mg tablet 0.3 mg PO BEDTIME PRN Referrals: Guanakito Napoles DO [Physician, Urology] Fran Smith PA-C [Primary Care Provider, Medical] Stand Alone Forms: Patient Portal/API
[2025-02-16] MEDS: KETOROLAC 30 MG/ML VIAL 15 MG IV (11:16)
[2025-02-16] MEDS: ONDANSETRON 4 MG/2 ML INJ IV (11:16)
[2025-02-16 11:29] LABS: Add Manual Diff / Slide Review NO; Hematocrit 42.3 % (36-46); Hemoglobin 14.6 g/dL (12.0-16.0); Lymphocytes Absolute Auto 3000 /uL (1100-4500); Mean Corpuscular HGB Conc 34.5 % (30-36); Mean Corpuscular Hemoglobin 30.7 PG (26-34); Mean Corpuscular Volume 88.7 fL (80-100); Platelet Count 363 X10^3/uL (150-400)
[2025-02-16 11:45] LABS: Culture Indicated Urine Cult Not Indicated
[2025-02-16 11:47] LABS: Alanine Aminotransferase 21 IU/L (<35); Albumin 4.9 g/dL (3.5-5.0); Albumin Globulin Ratio 1.4 (1.0-2.8); Alkaline Phosphatase 90 U/L (38-126); Blood Urea Nitrogen 11 mg/dL (7-17); Calcium 10.1 mg/dL (8.4-10.2); Carbon Dioxide 26 mmol/L (22-32); Chloride 103 mmol/L (98-107); Estimated Glomerular Filt Rate > 60 mL/min (>60); Globulin 3.6 g/dL (1.7-4.1); Glucose 104 mg/dL (70-99); HEMOLYSIS < 15 (0-50); Lipase 107 U/L (23-300); Potassium 4.0 mmol/L (3.4-5.1); Sodium 140 mmol/L (137-145); Total Protein 8.5 g/dL (6.3-8.2)
[2025-02-16 13:01] VITALS: BP 132/73; PULSE 81; RESP 16; O2SAT 96
[2025-02-16 13:27] VITALS: BP 138/84; PULSE 80; RESP 16; O2SAT 96
== END 2025-02-16 13:29 | disposition home or self-care (01) ==
PROVIDERS: Emergency Provider Emergency Medicine; PCP Student in an Organized Health Care Education/Training Program
DX: N20.1 Calculus of ureter (principal); R31.9 Hematuria, unspecified; R30.0 Dysuria
CPT/HCPCS: 74176; 80053; 81003; 81015; 83690; 85025; 87077; 87086; 87186; 96374; 96375; 99284; J1885; J2405

== ENCOUNTER → 2025-02-25 10:59 | Outpatient (CLI) | payer OTHER, SELFPAY | PROVIDERS: PCP Student in an Organized Health Care Education/Training Program; Visit Provider Urology | DX: R39.9 Unspecified symptoms and signs involving the genitourinary system (principal) | CPT/HCPCS: 87086 ==

== ENCOUNTER 2025-03-05 09:03 | Day surgery (SDC) | payer OTHER, SELFPAY ==
[2025-02-26 10:10] VITALS: BMI 36.6
[2025-03-05] VITALS (8 sets, daily range): BP systolic 124–142; BP diastolic 77–84; PULSE 69–82; RESP 11–21; TEMP 36.1–36.7; O2SAT 95–100
--- NOTE | 2025-03-05 | DI.RAD.S_ITS ---
PROCEDURE: XR ABDOMEN 1V INDICATIONS: RT STENT PLACEMENT TECHNIQUE: One view of the abdomen acquired. COMPARISON: [facility], CR, XR ABDOMEN 1V, 10/20/2022, 22:00. [facility], CT, CT KIDNEY URETER BLADDER (KUB), 02/16/2025, 11:11. FINDINGS: Intraoperative ureterovesicular stent placement labeled right side. There is prominence of the renal collecting system. Questionable appearance of filling defect in the proximal ureter. IMPRESSION: Intraoperative stent placement. Recommend correlation to real-time operative report regarding possible filling defect in the right ureter corresponding to prior stone. Dictated by: Emilia Zaragoza M.D. on 03/07/2025 at 12:17 Approved by: Emilia Zaragoza M.D. on 03/07/2025 at 12:18
[2025-03-05] MEDS: LACTATED RINGERS 1,000 ML 42 ML IV (09:44)
[2025-03-05] MEDS: SCOPOLAMINE 1 PATCH TOP (09:46)
[2025-03-05] MEDS: ACETAMINOPHEN IV 1,000 MG/100 ML VIAL 400 MG IV (09:47)
--- NOTE | 2025-03-05 10:32 | PM.PREOP ---
Pre-operative Note COVID-19 COVID-19 status: Not tested Interval Note History & Physical reviewed/Exam performed by Physician: Yes Changes to H&P: No
--- NOTE | 2025-03-05 11:42 | SUR.OPER ---
Lithotomy on padded OR bed, head on pillow, arms secured on padded arm boards at <90 degrees abduction. Legs secured in padded yellow fins stirrups.
--- NOTE | 2025-03-05 11:58 | PM.OP.1 ---
Operative Date/Time/Diagnoses Date of procedure: 03/05/25 Time of procedure: 11:10 Pre-op diagnosis: Right ureteral calculus Post-op diagnosis: same Procedure & Clinicians Procedure: Cystoscopy Right retrograde ureteropyelogram Right ureteroscopy, laser lithotripsy Right ureteral stent placement x 2 Intraoperative interpretation of fluoroscopic images, total time < 1 hour Same procedure(s) as scheduled: Yes Indications: 45 y/o F w/ h/o nephrolithiasis was diagnosed with an 8mm right UPJ calculus with resultant upstream mild hydronephrosis in Nov. She was on medical expulsion therapy, however, had recurrence of her pain. Her CT KUB was notable for persistence of this stone within her right lower pole moiety (unsure if completely duplicated). Discussed treatment options to include continued medical expulsion therapy (not recommended given she has been doing this for nearly three months now) vs a cystoscopy, right ureteroscopy, laser lithotripsy and right ureteral stent placement. Discussed risks of the procedure to include but not limited to pain, bleeding, infection, injury to urethra/bladder/ureter, inability to access the ureter requiring discussion with Interventional Radiology regarding a possible ureteral stent placement in an antegrade fashion vs a possible nephroureteral stent and/or percutaneous nephrostomy tube, urinary tract infection, inability to remove all of the stone in one setting, need for emergent open repair of bladder and/or ureter, need for multiple ureteroscopic interventions necessary to render the patient stone free. 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 She was then brought to the operating room where general anesthesia was induced.? She was placed in the low lithotomy position. She was then prepped and draped in the usual sterile fashion. A surgical timeout was conducted and all were in agreement. Access to the bladder was obtained via a 30 degree cystoscope.? Complete cystoscopy was then performed and no concerning bladder masses or lesions were appreciated.? Bilateral ureteral orifices were easily identified and noted to be orthotopic in nature (she was noted to have two right ureteral orifices).? The medial right ureteral orifice was then cannulated using a 0.035 sensor tip ureteral guidewire and a 5Fr ureteral catheter was advanced over the guidewire and into the distal right ureter.? The guidewire was then removed and a retrograde ureteropyelogram was performed which noted no filling defect consistent with a stone.? The ureteral guidewire was then readvanced through the ureteral catheter and into the right renal pelvis.? The ureteral catheter was then removed and a semirigid ureteroscope was easily advanced into her right ureter alongside the guidewire and to the level of the UPJ, no stone was appreciated. This ureteral guidewire was then left in place and the procedure was repeated for the more lateral right ureteral orifice. A moderate size stone was appreciated within the proximal right ureter.? A 200 micron laser fiber was then utilized to perform laser lithotripsy.? All stone fragments >1mm in size were removed via the stone basket and sent for chemical analysis.? The ureter was then directly visualized upon removal of the ureteroscope and noted to be stone free.? A 6Fr multi-length JJ ureteral stent with strings was then advanced over the ureteral guidewire in the lateral right ureteral orifice.? Upon removal of the guidewire, a good curl was noted in the right renal pelvis and the bladder using fluoroscopy.? This was repeated in idential fashion to insert a stent within the more medial right ureteral orifice. The bladder was then drained.? Anesthesia was reversed, she was extubated in the OR and transferred to the PACU in stable condition for recovery. Complications: none Post-operative Condition: stable Disposition: PACU Plan for aftercare: Discharge home from PACU. Will return to Urology clinic in 3 months for a RBUS and stone analysis.
[2025-03-05] MEDS: METOCLOPRAMIDE 10 MG/2 ML INJ IV (12:20)
[2025-03-05] MEDS: LACTATED RINGERS 1,000 ML 21 ML IV (12:58)
== END 2025-03-05 13:10 | disposition home or self-care (01) ==
PROVIDERS: PCP Student in an Organized Health Care Education/Training Program; Referring Provider Urology; Visit Provider Urology
PROC: 0TF78ZZ Fragmentation in Left Ureter, Via Natural or Artificial Opening Endoscopic (ICD-10-PCS; CPT 52353; principal; 2025-03-05 10:30)
DX: N20.1 Calculus of ureter (principal); Q62.5 Duplication of ureter; G47.30 Sleep apnea, unspecified; E66.9 Obesity, unspecified; Z68.36 Body mass index [BMI] 36.0-36.9, adult; R73.03 Prediabetes; Z79.84 Long term (current) use of oral hypoglycemic drugs; Z90.710 Acquired absence of both cervix and uterus; Z86.73 Personal history of transient ischemic attack (TIA), and cerebral infarction without residual deficits
CPT/HCPCS: 52356; 74018; 74420; 76000; J0131; J0689; J1100; J1885; J2405; J2704; J2765; J3010; J7120; Q9967

== ENCOUNTER 2025-03-11 18:40 | Emergency (ER) | payer OTHER, SELFPAY ==
[2025-03-11 19:01] VITALS: BP 157/83; PULSE 97; RESP 16; TEMP 37.2; O2SAT 99; BMI 36.6
--- NOTE | 2025-03-11 19:59 | ED_ITS ---
HPI - General Adult General Chief complaint: Urogenital-Female Stated complaint: Issues emptying bladder after ureteral stents Time Seen by Provider: 03/11/25 18:49 Source: patient Mode of arrival: Ambulatory History of Present Illness HPI narrative: 45-year-old female with history of current kidney stones, with history of duplicated right ureter, 3 prior episodes at least in the last 10+ years, November 2024 had stone in right ureter that unfortunately she was unable to passed, seemed to develop some obstruction to the duplicate adjacent right ureter, had ureteral stenting by local urologist Dr. Restrepo, per instructions pulled out the intact ureters yesterday, having right-sided flank pain today, and sensation of inability to urinate. No gross hematuria. No fevers or chills. No nausea or vomiting. Related Data Home Medications ?Medication ?Instructions ?Recorded ?Confirmed multivitamin (Multiple Vitamins 1 tab PO QDAY ##0 05/1703/05/25 tablet) Adult Low Dose Aspirin 1 tab DAILY 10/20/22 5 clonidine HCl 0.3 mg tablet 0.3 mg PO BEDTIME PRN clen robert 01/15/25 03/05/25 cyclobenzaprine 10 mg tablet 10 mg PO BEDTIME PRN musc le spasm 01/15/25 03/05/25 Previous Rx's ?Medication ?Instructions ?Recorded meloxicam 7.5 mg tablet 7.5 mg PO BID PRN pain #14 t abs 02/16/25 tamsulosin 0.4 mg capsule (Flomax) 0.4 mg PO DAILY #10 caps 02/16/25 levofloxacin 500 mg tablet 500 mg PO DAILY #3 tabs oxycodone-acetaminophen 5 mg-325 1 tab PO Q6H PRN pain #10 tabs 03/11/25 mg tablet phenazopyridine 200 mg tablet 200 mg PO TID PRN pain # 10 tabs 03/11/25 (Pyridium) Allergies Allergy/AdvReac Type Severity Reaction Status Date / Time hydrocodone (HYDROCODONE) Allergy Unknown ANAPHYLAXIS Verified 03/11/25 19:01 Patient History Medical History (Updated 03/11/25 @ 23:54 by Davin Stark MD) PFO (patent foramen ovale) LOUISA (obstructive sleep apnea) DVT (deep venous thrombosis) (~2009) CVA (cerebral vascular accident) (2010) Hx of migraines Hx of renal calculi Hx of History of depression Hx of completed stroke Atypical chest pain Surgical History (Updated 02/26/25 @ 10:13 by Samantha Rosario RN) Hx of vaginal hysterectomy (2016) Hx of tubal ligation (2004) Hx of breast biopsy (2005) Hx of appendectomy (2009) Social History marital status: number of children: 3 alcohol intake: never caffeine: Yes Type(s) of exercise: walking frequency: 3-4 times per week duration: 45-60 minutes/day Exam Narrative Exam Narrative: GENERAL: Well-developed patient, in mild distress. HEAD: Atraumatic. Normocephalic. EYES: Pupils equal round and reactive. Extraocular motions intact. No scleral icterus. No injection or drainage. ENT: Nose without bleeding, purulent drainage. Throat without erythema, tonsillar hypertrophy or exudate. Airway patent. NECK: Trachea midline. Non tender CARDIOVASCULAR: Regular rate and rhythm without murmurs, gallops, or rubs. RESPIRATORY: Clear to auscultation. Breath sounds equal bilaterally. No wheezes, rales, or rhonchi. GASTROINTESTINAL: Abdomen soft, non-tender, nondistended. EXTREMITIES: No edema or joint tenderness. BACK: Nontender without deformity or crepitance. No flank tenderness. NEURO: AOx3. Motor functions grossly nonfocal. SKIN: No rash or erythema of visible areas Initial Vital Signs Initial Vital Signs: Vital Signs Temperature 98.9 F 03/11/25 19:01 Pulse Rate 97 H 03/11/25 19:01 Respiratory Rate 16 03/11/25 19:01 Blood Pressure 157/83 H 03/11/25 19:01 Pulse Oximetry 99 03/11/25 19:01 Oxygen Delivery Method Room Air 03/11/25 19:01 Course Orders Ordered: ED Orders 03/11/25 20:39 CT abdomen pelvis wo con Stat 03/11/25 22:00 Urinalysis and Microscopic Stat 03/11/25 22:10 CBC Auto Diff [Complete Blood Count AUTO DIFF] Stat CMP [Comprehensive Metabolic Panel] Stat Lipase Stat Discontinued Medications Hydrocodone Bitart/Acetaminophen (Hydrocodone/Acet 5/325 Prepack) 1 bottle MISC DIRECTED ONE Stop: 03/11/25 22:20 Last Admin: 03/11/25 22:38 Dose: Not Given Documented By: BHARAT Ondansetron HCl (Ondansetron 4 Mg Odt) 4 mg SL NOW ONE Stop: 03/11/25 23:04 Last Admin: 03/11/25 23:05 Dose: 4 mg Documented By: BHARAT Oxycodone/Acetaminophen (Oxycodone/Acetaminophen 5/325 Tablet) 1 tab PO NOW ONE Stop: 03/11/25 22:37 Last Admin: 03/11/25 22:40 Dose: 1 tab Documented By: BHARAT Oxycodone/Acetaminophen (Oxycodone/Apap 5/325 Prepack) 1 bottle MISC DIRECTED ONE Stop: 03/11/25 22:37 Last Admin: 03/11/25 23:44 Dose: 1 bottle Documented By: BHARAT Phenazopyridine HCl (Phenazopyridine 100 Mg Tablet) 200 mg PO NOW ONE Stop: 03/11/25 23:39 Last Admin: 03/11/25 23:44 Dose: 200 mg Documented By: BHARAT Vital Signs Vital signs: Vital Signs - 8 hr 03/11/25 19:01 03/12/25 00:32 Temperature 98.9 F Pulse Rate 97 H 68 Respiratory Rate 16 16 Blood Pressure 157/83 H 133/68 Pulse Oximetry 99 98 Oxygen Delivery Method Room Air Room Air Medical Decision Making Lab Data Lab results reviewed: Yes I reviewed the patient's lab results. Lab results narrative: White blood cell count 56412, hemoglobin 12.5, platelets adequate. Glucose 110, normal renal function and electrolytes. Serum CO2 21 slight decreased. Liver functions normal. Urinalysis negative. 03/11/25 22:10 03/11/25 22:10 Labs: Lab Results 03/11/25 03/11/25 Range/Units 22:00 22:10 WBC 11.2 H (4.5-11.0) X10^3/uL RBC 4.14 (4.0-5.2) X10^6/uL Hgb 12.5 (12.0-16.0) g/dL Hct 36.9 (36-46) % MCV 89.2 (80-100) fL MCH 30.2 (26-34) PG MCHC 33.8 (30-36) % RDW 12.8 (11.6-14.8) % Plt Count 271 (150-400) X10^3/uL Neut % (Auto) 60.0 (50-75) % Lymph % (Auto) 25.2 (25-40) % [place] % (Auto) 5.6 (3-14) % Eos % (Auto) 6.2 H (2-4) % Baso % (Auto) 3.0 H (0-2) % Neut # (Auto) 6700 (4233-4332) /uL Lymph # (Auto) 2800 (7609-6781) /uL [place] # (Auto) 600 (0-900) /uL Eos # (Auto) 700 H (0-450) /uL Baso # (Auto) 300 H (0-100) /uL Sodium 137 (137-145) mmol/L Potassium 4.0 (3.4-5.1) mmol/L Chloride 107 (98-107) mmol/L Carbon Dioxide 21 L (22-32) mmol/L BUN 16 (7-17) mg/dL Creatinine 0.91 (0.52-1.04) mg/dL Estimated GFR > 60 (>60) mL/min BUN/Creatinine Ratio 17.6 (6-22) Glucose 110 H (70-99) mg/dL Calcium 9.5 (8.4-10.2) mg/dL Total Bilirubin 0.4 (0.2-1.3) mg/dL AST 26 (14-36) IU/L ALT 43 H (<35) IU/L Alkaline Phosphatase 111 (38-126) U/L Total Protein 7.0 (6.3-8.2) g/dL Albumin 4.0 (3.5-5.0) g/dL Globulin 3.0 (1.7-4.1) g/dL Albumin/Globulin Ratio 1.3 (1.0-2.8) Lipase 153 (23-300) U/L Urine Color Yellow Urine Appearance Clear Urine pH 6.0 (4.5-8.0) Ur Specific [place] <=1.005 (1.000-1.035) Urine Protein Negative (Negative) Urine Glucose (UA) Negative (Negative) g/dL Urine Ketones Negative (NEGATIVE) Urine Occult Blood 3+ H (Negative) Urine Nitrate Negative (Negative) Urine Bilirubin Negative (NEGATIVE) Urine Urobilinogen 0.2 (0.2) E.U./dL Ur Leukocyte Esterase Negative (NEGATIVE) Urine RBC 0-1/hpf (0-5/HPF) Urine WBC None seen (0-5/HPF) Ur Squamous Epith Cells 1-5 /hpf (0-5/HPF) Urine Bacteria None seen (None) Ur Culture Indicated? Cult not indicated Vol Urine Centrifuged 10ml (spun) Imaging Data CT scan - abdomen/pelvis: Radiologist's Impression: [address] [address] [address] Scan Report Signed Patient: Ledy Goss MR#: [id number] : 1980 Acct:[id number] Age/Sex: 45 / F Date of Service: 03/11/25 Loc: ED Accession Number: [id number] Procedure: CT abdomen pelvis wo con Ordering Provider: Davin Stark MD PROCEDURE: CT ABDOMEN PELVIS WO CON INDICATIONS: r flank pain, recent stents home removal yest R side TECHNIQUE: Axial sections were acquired from the lung bases to the pubic symphysis. Coronal and sagittal reformats were performed. For radiation dose reduction, the following was used: automated exposure control, adjustment of mA and/or kV according to patient size. COMPARISON: [facility], CT, CT ABDOMEN PELVIS WO CON, 11/27/2024, 6:26. [facility], CT, CT KIDNEY URETER BLADDER (KUB), 02/16/2025, 11:11. FINDINGS: Image quality: Diagnostic. Lower Chest: No significant findings. URINARY: Right Kidney: Minimal to mild hydronephrosis. No stone. Right Ureter: Minimal to mild hydronephrosis. Previous proximal ureteral stone is no longer visualized. Left Kidney: No stones or hydronephrosis. Left Ureter: No hydroureter. Bladder: Normal wall thickness. No stones. ABDOMEN: Liver: Liver measures 22.9 cm with steatosis. Gallbladder: No radiopaque gallstones or wall thickening. Biliary ducts: No biliary dilation. Pancreas: No ductal dilation. Spleen: Size is within normal limits. Adrenal Glands: No adrenal nodules. Stomach and Bowel: Normal colonic caliber, without significant wall thickening. Peritoneum: No abnormal intraperitoneal fluid. No free air. Ventral Wall: No hernia. Abdominal Nodes: No enlarged retroperitoneal or mesenteric lymph nodes. Vessels: Aorta and inferior vena cava are normal in size. PELVIS: Pelvic Organs: Unremarkable. Pelvic Nodes: Unremarkable. Miscellaneous: No inguinal hernias are seen. Bones: Unremarkable. IMPRESSION: Interval passage of right ureteral stone with minimal to mild residual hydronephrosis/hydroureter. Dictated by: Emilia Zaragoza M.D. on 03/11/2025 at 21:13 Approved by: Emilia Zaragoza M.D. on 03/11/2025 at 21:16 [facility] Narrative Medical decision making narrative: 45-year-old female with duplicated right ureteral system, prior kidney stones, recent obstructing right ureteral stone blocking both ureters, both ureters were stented by local urology, ureters were pulled out at home as directed yesterday, early this morning through the day having increasing right flank pain, sensation of inability to urinate last few hours. Afebrile, sirs screen negative. No CVA region tenderness. Lab data: White blood cell count 34268, hemoglobin 12.5, platelets adequate. Glucose 110, normal renal function and electrolytes. Serum CO2 21 slight decreased. Liver functions normal. Urinalysis negative. Urine specimen given, not grossly bloody or purulent per nursing notes, postvoid residual 380 cc. Trans-urethral urinary catheter to be placed, CBI type in case irrigation as needed for blood/clot. CT abdomen and pelvis noncontrast study ordered. Catheter placed, pink tinge urine without clots. Urinalysis not convincing for infection. CT abdomen and pelvis noncontrast. Shows interval passage of right ureteral stone, no mentioned of any perforation changes, no foreign body/stent components noted. See radiology report. Patient request Pyridium, given dose, prescription sent to her pharmacy. Home pack of oxycodone/acetaminophen (history of anaphylactic reaction to hydrocodone but apparently can take oxycodone). We discussed options of removal of Warner versus leaving in place. She would like to leave the Warner catheter in place. We will contact office of her regular urologist Dr. Napoles tomorrow Sant[place], to query about close follow up and possible catheter removal. Encouraged to continue her meloxicam for now. Discharged home with the . Return precautions discussed. Discharge Plan Departure Patient Disposition: Home Clinical Impression: Acute urinary retention, Gross hematuria Instructions: How to Care for Your Warner Catheter -- Female, DI for Urinary Retention in Women Activity Restrictions/Additional Instructions: History of right-sided kidney stone, with double ureter on that side, status post ureteral stents to both ureters recent, removed yesterday, increasing flank pain, inability to urinate. Bladder scan showed increased postvoid residual, suspicious for urinary retention. Urinary catheter placed, scant pink coloration only. Urine showed presence of blood as expected by exam, not obviously infected, though urine culture was requested. Pain control medications given. CT abdomen and pelvis imaging showed no obvious obstructing stones in the right renal system at this time, interval passage of right ureteral stone compared to previous study, minimal hydronephrosis/hydroureter dilatation of the ureters at this time per Radiology report. Leave Warner catheter in place for now. Follow up with your urologist Dr. Napoles early this next week, call the office tomorrow Saturday to expedite close follow up. Pyridium bladder anesthetic also prescribed, take as needed for discomfort. History of anaphylaxis to hydrocodone but you can take oxycodone. Home pack of oxycodone/acetaminophen was given, prescription sent to your pharmacy, along with Pyridium prescription. Continue taking your meloxicam medication prescription. Take new prescribed medications as directed. Follow up with your urologist Saturday. Return to this/nearest emergency department for any change worsening symptoms or any concerns prior. Prescriptions: New phenazopyridine [Pyridium] 200 mg tablet 200 mg PO TID PRN (Reason: pain) Qty: 10 0RF oxycodone-acetaminophen 5-325 mg tablet 1 tab PO Q6H PRN (Reason: pain) Qty: 10 0RF No Action multivitamin [Multiple Vitamins] 1 EACH tablet 1 tab PO QDAY Qty: 0 tamsulosin [Flomax] 0.4 mg capsule 0.4 mg PO DAILY Qty: 10 0RF meloxicam 7.5 mg tablet 7.5 mg PO BID PRN (Reason: pain) Qty: 14 0RF Adult Low Dose Aspirin 81 mg 1 tab DAILY Rx Instructions: pt states she can tolerate 81 mg without any reaction levofloxacin 500 mg tablet 500 mg PO DAILY Qty: 3 0RF Rx Instructions: take one tab the morning before, the morning of and the morning after your stent removal cyclobenzaprine 10 mg tablet 10 mg PO BEDTIME PRN (Reason: muscle spasm) clonidine HCl 0.3 mg tablet 0.3 mg PO BEDTIME PRN (Reason: clenching) Referrals: Fran Smith PA-C [Primary Care Provider, Medical] Stand Alone Forms: Patient Portal/API
--- NOTE | 2025-03-11 20:39 | DI.CT.S_ITS ---
PROCEDURE: CT ABDOMEN PELVIS WO CON INDICATIONS: r flank pain, recent stents home removal yest R side TECHNIQUE: Axial sections were acquired from the lung bases to the pubic symphysis. Coronal and sagittal reformats were performed. For radiation dose reduction, the following was used: automated exposure control, adjustment of mA and/or kV according to patient size. COMPARISON: [facility], CT, CT ABDOMEN PELVIS WO CON, 11/27/2024, 6:26. [facility], CT, CT KIDNEY URETER BLADDER (KUB), 02/16/2025, 11:11. FINDINGS: Image quality: Diagnostic. Lower Chest: No significant findings. URINARY: Right Kidney: Minimal to mild hydronephrosis. No stone. Right Ureter: Minimal to mild hydronephrosis. Previous proximal ureteral stone is no longer visualized. Left Kidney: No stones or hydronephrosis. Left Ureter: No hydroureter. Bladder: Normal wall thickness. No stones. ABDOMEN: Liver: Liver measures 22.9 cm with steatosis. Gallbladder: No radiopaque gallstones or wall thickening. Biliary ducts: No biliary dilation. Pancreas: No ductal dilation. Spleen: Size is within normal limits. Adrenal Glands: No adrenal nodules. Stomach and Bowel: Normal colonic caliber, without significant wall thickening. Peritoneum: No abnormal intraperitoneal fluid. No free air. Ventral Wall: No hernia. Abdominal Nodes: No enlarged retroperitoneal or mesenteric lymph nodes. Vessels: Aorta and inferior vena cava are normal in size. PELVIS: Pelvic Organs: Unremarkable. Pelvic Nodes: Unremarkable. Miscellaneous: No inguinal hernias are seen. Bones: Unremarkable. IMPRESSION: Interval passage of right ureteral stone with minimal to mild residual hydronephrosis/hydroureter. Dictated by: Emilia Zaragoza M.D. on 03/11/2025 at 21:13 Approved by: Emilia Zaragoza M.D. on 03/11/2025 at 21:16
[2025-03-11 22:20] LABS: Appearance Urine UA CLEAR; Bilirubin Urine UA NEGATIVE (NEGATIVE); Color Urine UA YELLOW; Glucose Urine UA NEGATIVE (Negative); Ketones Urine UA NEGATIVE (NEGATIVE); Nitrite Urine UA NEGATIVE (Negative); Occult Blood Urine UA 3+ (Negative); Protein Urine UA NEGATIVE (Negative); Specific Gravity Urine UA <=1.005 (1.000-1.035); Urobilinogen Urine UA 0.2 E.U./dL (0.2)
[2025-03-11 22:23] LABS: Add Manual Diff / Slide Review NO; Hematocrit 36.9 % (36-46); Hemoglobin 12.5 g/dL (12.0-16.0); Lymphocytes Absolute Auto 2800 /uL (1100-4500); Mean Corpuscular HGB Conc 33.8 % (30-36); Mean Corpuscular Hemoglobin 30.2 PG (26-34); Mean Corpuscular Volume 89.2 fL (80-100); Platelet Count 271 X10^3/uL (150-400)
[2025-03-11 22:28] LABS: Leukocyte Esterase Urine UA NEGATIVE (NEGATIVE); pH Urine UA 6.0 (4.5-8.0)
[2025-03-11 22:29] LABS: Culture Indicated Urine Cult Not Indicated
[2025-03-11 22:32] LABS: Alanine Aminotransferase 43 IU/L (<35); Albumin 4.0 g/dL (3.5-5.0); Albumin Globulin Ratio 1.3 (1.0-2.8); Alkaline Phosphatase 111 U/L (38-126); Blood Urea Nitrogen 16 mg/dL (7-17); Calcium 9.5 mg/dL (8.4-10.2); Carbon Dioxide 21 mmol/L (22-32); Chloride 107 mmol/L (98-107); Estimated Glomerular Filt Rate > 60 mL/min (>60); Globulin 3.0 g/dL (1.7-4.1); Glucose 110 mg/dL (70-99); HEMOLYSIS < 15 (0-50); Lipase 153 U/L (23-300); Potassium 4.0 mmol/L (3.4-5.1); Sodium 137 mmol/L (137-145); Total Protein 7.0 g/dL (6.3-8.2)
--- NOTE | 2025-03-11 22:49 | PC.NURSE ---
[address] per [address] Stark, urine appeared yellow and clear, sample sent to lab. At 1145, pt reported pain that comes in waves 5-9/10. Urine in cath tubing turning pink at this time. Provider notified.
[2025-03-11] MEDS: ONDANSETRON 4 MG ODT SL (23:05)
[2025-03-11] MEDS: PHENAZOPYRIDINE 100 MG TABLET 200 MG PO (23:44)
[2025-03-12 00:32] VITALS: BP 133/68; PULSE 68; RESP 16; O2SAT 98
== END 2025-03-12 00:34 | disposition home or self-care (01) ==
PROVIDERS: Emergency Provider Emergency Medicine; PCP Student in an Organized Health Care Education/Training Program
DX: R33.9 Retention of urine, unspecified (principal); R31.0 Gross hematuria; Z96.0 Presence of urogenital implants; Z87.448 Personal history of other diseases of urinary system
CPT/HCPCS: 36415; 51701; 51798; 74176; 80053; 81001; 83690; 85025; 99284